=== PATIENT | female | born 1960 | race Caucasian/White ===

== ENCOUNTER → 2022-08-24 10:49 | Outpatient (BNVA) | payer OTHER, SELFPAY | PROVIDERS: PCP Physician Assistant; Referring Provider Physician Assistant; Visit Provider Student in an Organized Health Care Education/Training Program | DX: M06.9 Rheumatoid arthritis, unspecified (principal) ==

== ENCOUNTER → 2022-10-25 11:04 | Outpatient (BNVA) | payer OTHER, SELFPAY | PROVIDERS: PCP Physician Assistant; Visit Provider Student in an Organized Health Care Education/Training Program | DX: Z13.89 Encounter for screening for other disorder (principal) ==

== ENCOUNTER 2022-12-04 09:39 | Outpatient (REF) | payer OTHER, SELFPAY | END 2022-12-04 09:40 | disposition home or self-care (01) | LOC: HO.HOSX 09:39 | PROVIDERS: Visit Provider Orthopaedic Surgery | DX: Z13.89 Encounter for screening for other disorder (principal) ==

== ENCOUNTER 2022-12-05 15:12 | Outpatient (REF) | payer OTHER, SELFPAY ==
--- NOTE | ~2022-12-05 | XR_ITS ---
EXAMINATION: XR HAND, RIGHT CLINICAL INFORMATION: Pain COMPARISON: None available. TECHNIQUE: PA, lateral, and oblique views of the right hand. FINDINGS: There is a single screw seen across the first MCP joint. There appears to be bony ankylosis at the joint space. The trapezium may been removed. There is mild arthritis at the first PENITENTIARY joint with joint space narrowing, subchondral cyst and osteophyte formation. There is a triangular-shaped well-corticated bone density projecting over the distal radial ulnar joint suggestive of changes related to old trauma. There is question of widening of the distal radial ulnar joint and dorsal subluxation of the distal ulna with respect to the radius and carpal bones. Soft tissues are unremarkable. XR/XR hand RT min 3V IMPRESSION: Surgical arthrodesis of the first MCP joint. Question resection of the trapezium. Arthritis at the first PENITENTIARY joint. Question old trauma to the distal radial ulnar joint and dorsal subluxation of the distal ulna.
== END 2022-12-05 15:13 | disposition home or self-care (01) ==
LOC: HO.HOSX 15:12
PROVIDERS: Visit Provider Orthopaedic Surgery
DX: M79.641 Pain in right hand (principal); M25.331 Other instability, right wrist; M06.9 Rheumatoid arthritis, unspecified
CPT/HCPCS: 73130

== ENCOUNTER → 2023-01-10 11:04 | Outpatient (BNVA) | payer OTHER, SELFPAY | PROVIDERS: PCP Physician Assistant; Visit Provider Student in an Organized Health Care Education/Training Program ==

== ENCOUNTER 2023-02-11 11:15 | Outpatient (REF) | payer OTHER, SELFPAY ==
--- NOTE | ~2023-02-11 | CT_ITS ---
EXAMINATION: Chest CT high-resolution without IV contrast CLINICAL INFORMATION: Rheumatoid arthritis COMPARISON: None. TECHNIQUE: Axial images through the chest without IV contrast. Sagittal and coronal reconstructions on the technologist workstation were performed. This CT examination was performed using dose optimization techniques as appropriate, variously including the following: *Automated exposure control *Adjustment of mA and/or kV according to patient size (this includes techniques or standardized protocols for targeted exams where dose is matched to indication/reason for exam; i.e. extremities or head) *Use of iterative reconstruction technique DLP 2 4 9 mg/ cm. FINDINGS: No evidence of interstitial lung disease. 2 mm peripheral or subpleural left lower lobe nodule axial image 09/24/2009. This probably represents a subpleural lymph node. Minimal scarring or subsegmental atelectasis in the posterior medial right lower lobe adjacent to vertebral body bony osteophyte. Normal heart size. Trace pericardial fluid or thickening. Mild coronary artery calcification. Normal caliber thoracic aorta. No enlarged hilar or mediastinal lymph nodes. Normal thyroid gland. No pleural effusion or pleural thickening. No chest wall mass or enlarged axillary lymph nodes. There is atherosclerotic disease of the abdominal aorta. Images through the upper abdomen are otherwise unremarkable. Degenerative changes of the spine and shoulders. CT/CT chest wo con - High Res IMPRESSION: No evidence of interstitial lung disease. 2 mm left lower lobe peripheral or subpleural nodule probably representing a subpleural lymph node. According to the UPDATED 2017 Fleischner Society recommendations, the advised follow-up imaging for less than 6 mm solid nodule: Low risk, no chest CT follow-up and high risk, optional chest CT follow-up in one year. Atherosclerotic disease.
== END 2023-02-11 11:16 | disposition home or self-care (01) ==
LOC: HO.CT 11:15
PROVIDERS: PCP Physician Assistant; Visit Provider Student in an Organized Health Care Education/Training Program
DX: M06.9 Rheumatoid arthritis, unspecified (principal)
CPT/HCPCS: 71250

== ENCOUNTER 2023-04-18 10:13 | Outpatient (AMB) | payer MEDICARE, OTHER, SELFPAY ==
[2023-04-18 10:18] VITALS: BP 124/72; PULSE 68; TEMP 36.3; O2SAT 98; BMI 28.8
--- NOTE | 2023-04-18 10:18 | MHC.OFFVIS ---
Intake Vital Signs 04/18/23 10:18 Height 5 ft 4 in Weight 167 lb 8.821 oz BMI 28.8 BP 124/72 Blood Pressure Location Rt brachial Position Sitting Pulse 68 Pulse Source Pulse Oximeter Temp 97.3 F Temp Source Skin Pulse Oximetry (%) 98 Intake Visit Reasons: RA Intake Note: Pt seen today for RA follow up. Manufacturers Agent Required: No Accompanied by: Self / Same As Patient Allergies Seasonal Allergies Allergy (Unknown, Verified 04/18/23 10:21) Unknown Medication List - Last Reconciled 04/18/23 by Antonette Pope MD albuterol sulfate 90 mcg/actuation (ProAir HFA) 2 puffs inhalation Q6H PRN aspirin (Adult Low Dose Aspirin) 81 mg PO DAILY atorvastatin 40 mg PO BEDTIME bupropion HCl 150 mg PO BID famciclovir 1,500 mg PO BID fluticasone propionate 50 mcg/actuation (Allergy Relief (fluticasone)) 2 sprays intranasal DAILY folic acid 1 mg PO DAILY gabapentin 600 mg PO TID gabapentin 300 mg PO BEDTIME hydrochlorothiazide 25 mg PO DAILY metformin ER 500 mg PO BID methotrexate sodium 20 mg PO QWEEK pantoprazole 20 mg PO DAILY prednisolone acetate 1% 0 drps ophthalmic (eye) sarilumab (Kevzara) 200 mg (1.14 mL) subcut Q2W sertraline 50 mg PO DAILY HPI HPI Comments History of Present Illness Details 63-year-old female with seropositive rheumatoid arthritis returns for follow-up. Patient has been having right big toe pain for long time but it has been worse recently. This affects her gait switch causes pain in both hips especially the right hip. She has also been having bilateral hip pain worse on the right. She has intermittent pain in her right 2nd MCP. She has been getting triggering of her right middle finger worse with activity. This happens every day and however she tries to do certain activities with her hands. Initial history: This is a 62-year-old female with a past medical history of hypertension, diabetes mellitus, dyslipidemia, CVA, carotid artery stenosis, obstructive sleep apnea presents for RA management. Patient's previous lactation specialist left the practice. Patient was initially diagnosed by Dr. Salinas in 2006. She was on meloxicam, initially, Plaquenil was not very effective. She had been on methotrexate almost all through. Was on leflunomide but it was rapidly discontinued per patient, likely due to lack of efficacy, She was on Enbrel for 7-8 years and it stopped its efficacy. Humira was not effective. She was doing well on Xeljanz for 2-3 years then it it was switched to Kevzara in 2020 by . She remains on Kevzara every 2 weeks, methotrexate 8 tabs once weekly and folic acid, she is also on prednisone but she is not sure how much she is taking. For more than 1 month patient has been sick with a cold she has been having runny nose followed by chest congestion and cough. Her cough is now productive of greenish sputum. She denies any fevers. She denies worsening shortness of breath She self tested herself for COVID at home multiple times and it was negative. She received the flu vaccine this season. Patient continues to have diffuse joint pain she has difficulty flexing her right middle finger PIP. She has morning stiffness especially affecting her hips bilaterally. She takes ibuprofen 3-4 tablets 3 to 4 times a month for joint pain. [facility] Medical History Anxiety Back pain with history of spinal surgery Biceps tendinitis Carotid artery stenosis CVA (cerebral vascular accident) Diabetes Essential (primary) hypertension GERD (gastroesophageal reflux disease) Hyperlipidemia Impaired cognition Insomnia KAROLINA (obstructive sleep apnea) Rheumatoid arthritis Tobacco abuse Surgical History H/O cervical discectomy H/O heart artery stent H/O neck surgery H/O thumb surgery History of bladder surgery Hx of section Hx of colonoscopy Hx of knee surgery Family History Mother Thyroid disease Heart disease Arthritis Maternal Grandfather Stomach cancer Social History Household Members: Spouse and Children Alcohol intake: current Patient Tobacco Use Status: Current everyday Tobacco user Cigarettes Per Day: 4 Substance Use Type: Marijuana Current occupational status: previously employed and retired 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 Review of Systems [facility] Reports arthralgias Skin/Breast Reports system reviewed and no additional complaints, except as documented Physical Exam Vital Signs: Last Vital Signs Temp 97.3 F 04/18/23 10:18 Pulse 68 08/24/23 10:18 BP 124/72 04/18/23 10:18 Pulse Ox 98 04/18/23 10:18 BMI result Body Mass Index 28.8 Const General: cooperative, comfortable and no acute distress Nutritional Appearance: obese Orientation/consciousness: patient oriented x3 Limitations: no limitations HEENT Head: Yes normocephalic and Yes atraumatic Resp Effort & Inspection: normal respiratory effort and able to speak in complete sentences Neuro General: patient oriented x3 Extrem Other: Mild right wrist tenderness at the ulnar styloid, minimal swelling Positive right hand MCP squeeze test (pain and 2nd MCP) Right trochanteric bursa area tenderness. Negative Patrice's test Osteoarthritic changes of both hands with Heberden's and Sarahi's nodes Bilateral feet bunions. Worse on the right, right big toe bunion tender No MTP tenderness Bilateral CMC grind test positive with pain Few fibromyalgia tender points Office Procedures Joint Injection/Drain Joint Injection/Drain Primary Site: right trigger finger (Middle finger) Prep: site was prepped using sterile technique and ethochloride spray was applied Injected: 20 mg of, Kenalog and other (0.1 mL of 1% lidocaine) Procedure: The patient tolerated the procedure well Coding Details: The right palm was prepped with ChloraPrep and alcohol. Under a topical ethyl chloride spray the [3rd] flexor tendon sheath was injected with 20 mg of triamcinolone and 0.1 cc of 1% lidocaine. The patient tolerated the procedure without any acute adverse effects. Additional procedure code (CPT) needed (Trigger finger) Results Reviewed Results Reviewed: Labs 05/2022? HbA1c 6.2%? CRP normal? CMP unremarkable with normal AST/ALT/albumin/creatinine Sed rate normal CBC unremarkable with normal WBC, hemoglobin and platelets Labs 09/2022 showed normal BMP Assessment & Plan Assessment & Plan (1) Rheumatoid arthritis: Comment: ++RF+++CCP Diagnosed [address] Salinas. Hydroxychloroquine, leflunomide ineffective Methotrexate all through Enbrel for 7-8 years working well then lost efficacy, Humira ineffective Xeljanz effective for 2-3 years then switched to Kevzara 2020 (due to risk of CV events) Kevzara 2020 effective Code(s): M06.9 - Rheumatoid arthritis, unspecified Qualifiers: Rheumatoid arthritis location: multiple sites Rheumatoid factor presence: unspecified presence Qualified Code(s): M06.9 - Rheumatoid arthritis, unspecified Plan: 63-year-old female with seropositive RA presents for follow-up. on methotrexate 20 mg weekly and Kevzara 200 mg every other week. Today patient's RA is well controlled. She has a couple of tender joints. continue the methotrexate 20 mg once weekly and folic acid, continue Kevzara 200 mg every [address] High-resolution CT chest with order to evaluate for RA LD you which was negative. She has a 2 mm pulmonary nodule Labs before next visit in 3 months (2) Trigger middle finger of right hand: Code(s): M65.331 - Trigger finger, right middle finger Plan: Triggering of right middle finger. Patient is not interested in occupational therapy. With patient's consent. Right middle finger trigger injected in clinic today (3) Bunion of great toe of right foot: Code(s): M21.611 - Bunion of right foot Plan: Follow-up with Podiatry (4) Trochanteric bursitis of right hip: Code(s): M70.61 - Trochanteric bursitis, right hip Plan: I gave patient a printout of stretching exercise to do at home. If no improvement in 4-6 week so patient will call the office for an injection Plan I spent 35 minutes reviewing patient's chart, evaluating patient, ordering diagnostic workup, counseling patient and documenting in the chart Orders: Orders Comprehensive Met. Panel 3 Months M06.9 - Rheumatoid arthritis, unspecified Complete Blood Count Auto Diff 3 Months M06.9 - Rheumatoid arthritis, unspecified Erythrocyte Sedimentation Rate 3 Months M06.9 - Rheumatoid arthritis, unspecified C Reactive Protein 3 Months M06.9 - Rheumatoid arthritis, unspecified AMB Joint Injection/Aspiration Today M65.331 - Trigger finger, right middle finger Coding Level of Care Code Est Pt Level 4 (87991) Diagnoses Rheumatoid arthritis M06.9 Rheumatoid arthritis location: multiple sites Rheumatoid factor presence: unspecified presence Trigger middle finger of right hand M65.331 Bunion of great toe of right foot M21.611 Trochanteric bursitis of right hip M70.61
== END 2023-04-18 10:46 | disposition home or self-care (01) ==
PROVIDERS: PCP Physician Assistant; Visit Provider Student in an Organized Health Care Education/Training Program
DX: M06.9 Rheumatoid arthritis, unspecified (principal); M65.331 Trigger finger, right middle finger; M21.611 Bunion of right foot; M70.61 Trochanteric bursitis, right hip
CPT/HCPCS: 20550; 99214

== ENCOUNTER → 2023-04-18 10:13 | Outpatient (BNVA) | payer MEDICARE, OTHER, SELFPAY | PROVIDERS: Visit Provider Student in an Organized Health Care Education/Training Program | DX: M65.331 Trigger finger, right middle finger (principal); M06.9 Rheumatoid arthritis, unspecified; M21.611 Bunion of right foot; M70.61 Trochanteric bursitis, right hip | CPT/HCPCS: 20550; 99212; J3301 ==

== ENCOUNTER 2023-07-04 10:42 | Outpatient (AMB) | payer MEDICARE, OTHER, SELFPAY ==
[2023-07-04 10:45] VITALS: BP 128/72; PULSE 66; TEMP 36.6; O2SAT 97; BMI 30.4
--- NOTE | 2023-07-04 10:45 | MHC.OFFVIS ---
Intake Vital Signs 07/04/23 10:45 Height 5 ft 4 in Weight 177 lb 0.499 oz BMI 30.4 BP 128/72 Blood Pressure Location Rt brachial Position Sitting Pulse 66 Pulse Source Pulse Oximeter Temp 97.8 F Temp Source Skin Pulse Oximetry (%) 97 Intake Visit Reasons: RA Intake Note: Pt last seen 04/18/23, presents today for follow up and test results. Labs not done, orders were faxed to [facility] lab yesterday she will do them today. C/o shoulder pain, requesting injection. Pantograph Ii Engraver Required: No Accompanied by: Self / Same As Patient Allergies Seasonal Allergies Allergy (Unknown, Verified 07/04/23 10:47) Unknown Medication List - Last Reconciled 07/04/23 by Antonette Pope MD albuterol sulfate 90 mcg/actuation (ProAir HFA) 2 puffs inhalation Q6H PRN aspirin (Adult Low Dose Aspirin) 81 mg PO DAILY atorvastatin 40 mg PO BEDTIME bupropion HCl 150 mg PO BID famciclovir 1,500 mg PO BID fluticasone propionate 50 mcg/actuation (Allergy Relief (fluticasone)) 2 sprays intranasal DAILY folic acid 1 mg PO DAILY gabapentin 600 mg PO TID gabapentin 300 mg PO BEDTIME hydrochlorothiazide 25 mg PO DAILY Kevzara (sarilumab) 200 mg (1.14 mL) subcut Q2W NS metformin ER 500 mg PO BID methotrexate sodium 20 mg PO QWEEK pantoprazole 20 mg PO DAILY prednisolone acetate 1% 0 drps ophthalmic (eye) sertraline 50 mg PO DAILY HPI HPI Comments History of Present Illness Details 63-year-old female with seropositive rheumatoid arthritis returns for follow-up. Patient states that over the last couple of weeks she has been having bilateral shoulder pain and stiffness. She states that she would get shoulder injections by Pain Management in the past. The most recent injection was about a year ago. She is requesting bilateral shoulder injections today. States that she continues to have triggering of her right middle finger. She is also having triggering of her left index and left middle finger. Initial history: This is a 62-year-old female with a past medical history of hypertension, diabetes mellitus, dyslipidemia, CVA, carotid artery stenosis, obstructive sleep apnea presents for RA management. Patient's previous carbon rod inserter left the practice. Patient was initially diagnosed by Dr. Salinas in 2006. She was on meloxicam, initially, Plaquenil was not very effective. She had been on methotrexate almost all through. Was on leflunomide but it was rapidly discontinued per patient, likely due to lack of efficacy, She was on Enbrel for 7-8 years and it stopped its efficacy. Humira was not effective. She was doing well on Xeljanz for 2-3 years then it it was switched to Kevzara in 2020 by . She remains on Kevzara every 2 weeks, methotrexate 8 tabs once weekly and folic acid, she is also on prednisone but she is not sure how much she is taking. For more than 1 month patient has been sick with a cold she has been having runny nose followed by chest congestion and cough. Her cough is now productive of greenish sputum. She denies any fevers. She denies worsening shortness of breath She self tested herself for COVID at home multiple times and it was negative. She received the flu vaccine this season. Patient continues to have diffuse joint pain she has difficulty flexing her right middle finger PIP. She has morning stiffness especially affecting her hips bilaterally. She takes ibuprofen 3-4 tablets 3 to 4 times a month for joint pain. [facility] Medical History Back pain with history of spinal surgery Tobacco abuse KAROLINA (obstructive sleep apnea) Rheumatoid arthritis Essential (primary) hypertension Anxiety CVA (cerebral vascular accident) Hyperlipidemia Insomnia Impaired cognition Diabetes Biceps tendinitis Carotid artery stenosis GERD (gastroesophageal reflux disease) Surgical History H/O neck surgery H/O thumb surgery H/O heart artery stent H/O cervical discectomy Hx of colonoscopy Hx of knee surgery Hx of section History of bladder surgery Family History Mother Thyroid disease Heart disease Arthritis Maternal Grandfather Stomach cancer Social History Household Members: Spouse and Children Alcohol intake: current Patient Tobacco Use Status: Current everyday Tobacco user Cigarettes Per Day: 4 Substance Use Type: Marijuana Current occupational status: previously employed and retired 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 Review of Systems [facility] Reports arthralgias Skin/Breast Reports system reviewed and no additional complaints, except as documented Physical Exam Vital Signs: Last Vital Signs Temp 97.8 F 07/04/23 10:45 Pulse 66 07/04/23 10:45 BP 128/72 07/04/23 10:45 Pulse Ox 97 07/04/23 10:45 BMI result Body Mass Index 30.4 Const General: cooperative, comfortable and no acute distress Nutritional Appearance: obese Orientation/consciousness: patient oriented x3 Limitations: no limitations HEENT Head: Yes normocephalic and Yes atraumatic Resp Effort & Inspection: normal respiratory effort and able to speak in complete sentences Neuro General: patient oriented x3 Extrem Other: Minimal swelling at the right ulnar styloid without tenderness. Normal range of motion of right wrist Positive right hand MCP squeeze test (pain at 2nd MCP) Triggering of right middle finger Bilateral shoulder pain with full abduction Limited neck rotation bilaterally Negative Spurling's test Osteoarthritic changes of both hands with Heberden's and Sarahi's nodes Bilateral feet bunions. Worse on the right No MTP tenderness Bilateral CMC grind test positive with pain Few fibromyalgia tender points Office Procedures Joint Injection/Drain Joint Injection/Drain Primary Site: left shoulder Secondary Site: right shoulder Prep: site was prepped using sterile technique Injected: 40 mg of, Kenalog and other (2 mL of 1% lidocaine) Approach Used: posterolateral Procedure: The patient tolerated the procedure well Coding Details: With the patient's consent the left shoulder was prepped with ChloraPrep and alcohol. Under a topical ethyl chloride spray the left subacromial space was injected with 40 mg of triamcinolone and 2 cc of 1% lidocaine. The patient tolerated the procedure without any acute adverse effects. With the patient's consent the right shoulder was prepped with ChloraPrep and alcohol. Under a topical ethyl chloride spray the right subacromial space was injected with 40 mg of triamcinolone and 2 cc of 1% lidocaine. The patient tolerated the procedure without any acute adverse effects. - Large joint (X2) Procedure code (CPT) selection complete Results Reviewed Results Reviewed: Labs 05/2022? HbA1c 6.2%? CRP normal? CMP unremarkable with normal AST/ALT/albumin/creatinine Sed rate normal CBC unremarkable with normal WBC, hemoglobin and platelets Labs 09/2022 showed normal BMP Assessment & Plan Assessment & Plan (1) Rheumatoid arthritis: Comment: ++RF+++CCP Diagnosed [address] Salinas. Hydroxychloroquine, leflunomide ineffective Methotrexate all through Enbrel for 7-8 years working well then lost efficacy, Humira ineffective Xeljanz effective for 2-3 years then switched to Kevzara 2020 (due to risk of CV events) Kevzara 2020 effective Code(s): M06.9 - Rheumatoid arthritis, unspecified Qualifiers: Rheumatoid arthritis location: multiple sites Rheumatoid factor presence: unspecified presence Qualified Code(s): M06.9 - Rheumatoid arthritis, unspecified Plan: 63-year-old female with seropositive RA presents for follow-up. on methotrexate 20 mg weekly and Kevzara 200 mg every other week. RA is well controlled on current treatment. continue the methotrexate 20 mg once weekly and folic acid, continue Kevzara 200 mg every [address] High-resolution CT chest was ordered to evaluate for RA-ILD which was negative. She has a 2 mm pulmonary nodule Labs before next visit in 3 months (2) Trigger middle finger of right hand: Code(s): M65.331 - Trigger finger, right middle finger Plan: Triggering of right middle finger. Was injected last visit without improvement. Will refer patient to Hand surgery (3) Rotator cuff arthropathy of both shoulders: Code(s): M12.811 - Other specific arthropathies, not elsewhere classified, right shoulder; M12.812 - Other specific arthropathies, not elsewhere classified, left shoulder Plan: With patient's consent, both shoulders were injected with Kenalog today for subacromial bursitis.. Advised patient that if her shoulder pain does not improved, she should consider evaluation by Pain Management as some of her shoulder pain can be referred from her neck arthritis Plan I spent 35 minutes reviewing patient's chart, evaluating patient, ordering diagnostic workup, counseling patient and documenting in the chart Orders: Orders Comprehensive Met. Panel Today Z79.631 - senior care (current) use of antimetabolite agent Erythrocyte Sedimentation Rate Today Z79.631 - termite control service representative (current) use of antimetabolite agent Complete Blood Count Auto Diff 10/02/23 Z79.631 - termite control service representative (current) use of antimetabolite agent Complete Blood Count Auto Diff 12/31/23 Z79.631 - senior care (current) use of antimetabolite agent Complete Blood Count Auto Diff 03/30/24 Z79.631 - termite control service representative (current) use of antimetabolite agent Complete Blood Count Auto Diff 06/28/24 Z79.631 - termite control service representative (current) use of antimetabolite agent Complete Blood Count Auto Diff 09/26/24 Z79.631 - senior care (current) use of antimetabolite agent Complete Blood Count Auto Diff 03/25/25 Z79.631 - senior care (current) use of antimetabolite agent Complete Blood Count Auto Diff 06/23/25 Z79.631 - senior care (current) use of antimetabolite agent Complete Blood Count Auto Diff 12/20/25 Z79.631 - senior care (current) use of antimetabolite agent Complete Blood Count Auto Diff 03/20/26 Z79.631 - senior care (current) use of antimetabolite agent Comprehensive Met. Panel Today Z79.631 - termite control service representative (current) use of antimetabolite agent Comprehensive Met. Panel 10/02/23 Z79.631 - senior care (current) use of antimetabolite agent Comprehensive Met. Panel 06/23/25 Z79.631 - termite control service representative (current) use of antimetabolite agent C Reactive Protein Today Z79.631 - termite control service representative (current) use of antimetabolite agent C Reactive Protein 12/31/23 Z79.631 - termite control service representative (current) use of antimetabolite agent C Reactive Protein 06/28/24 Z79.631 - senior care (current) use of antimetabolite agent C Reactive Protein 09/26/24 Z79.631 - senior care (current) use of antimetabolite agent C Reactive Protein 09/21/25 Z79.631 - termite control service representative (current) use of antimetabolite agent C Reactive Protein 12/20/25 Z79.631 - senior care (current) use of antimetabolite agent Erythrocyte Sedimentation Rate Today Z79.631 - senior care (current) use of antimetabolite agent Erythrocyte Sedimentation Rate 12/31/23 Z79.631 - termite control service representative (current) use of antimetabolite agent Erythrocyte Sedimentation Rate 09/26/24 Z79.631 - termite control service representative (current) use of antimetabolite agent Erythrocyte Sedimentation Rate 12/25/24 Z79.631 - senior care (current) use of antimetabolite agent Erythrocyte Sedimentation Rate 06/23/25 Z79.631 - termite control service representative (current) use of antimetabolite agent Erythrocyte Sedimentation Rate 03/20/26 Z79.631 - termite control service representative (current) use of antimetabolite agent AMB Joint Injection/Aspiration Today M06.9 - Rheumatoid arthritis, unspecified Complete Blood Count Auto Diff Today Z79.631 - termite control service representative (current) use of antimetabolite agent C Reactive Protein Today Z79.631 - senior care (current) use of antimetabolite agent Complete Blood Count Auto Diff Today Z79.631 - termite control service representative (current) use of antimetabolite agent Complete Blood Count Auto Diff 12/25/24 Z79.631 - senior care (current) use of antimetabolite agent Complete Blood Count Auto Diff 09/21/25 Z79.631 - termite control service representative (current) use of antimetabolite agent Comprehensive Met. Panel 12/31/23 Z79.631 - senior care (current) use of antimetabolite agent Comprehensive Met. Panel 03/30/24 Z79.631 - termite control service representative (current) use of antimetabolite agent Comprehensive Met. Panel 06/28/24 Z79.631 - senior care (current) use of antimetabolite agent Comprehensive Met. Panel 09/26/24 Z79.631 - termite control service representative (current) use of antimetabolite agent Comprehensive Met. Panel 12/25/24 Z79.631 - termite control service representative (current) use of antimetabolite agent Comprehensive Met. Panel 03/25/25 Z79.631 - senior care (current) use of antimetabolite agent Comprehensive Met. Panel 09/21/25 Z79.631 - termite control service representative (current) use of antimetabolite agent Comprehensive Met. Panel 12/20/25 Z79.631 - termite control service representative (current) use of antimetabolite agent Comprehensive Met. Panel 03/20/26 Z79.631 - senior care (current) use of antimetabolite agent C Reactive Protein 10/02/23 Z79.631 - termite control service representative (current) use of antimetabolite agent C Reactive Protein 03/30/24 Z79.631 - termite control service representative (current) use of antimetabolite agent C Reactive Protein 12/25/24 Z79.631 - termite control service representative (current) use of antimetabolite agent C Reactive Protein 03/25/25 Z79.631 - senior care (current) use of antimetabolite agent C Reactive Protein 06/23/25 Z79.631 - senior care (current) use of antimetabolite agent C Reactive Protein 03/20/26 Z79.631 - senior care (current) use of antimetabolite agent Erythrocyte Sedimentation Rate 10/02/23 Z79.631 - termite control service representative (current) use of antimetabolite agent Erythrocyte Sedimentation Rate 03/30/24 Z79.631 - senior care (current) use of antimetabolite agent Erythrocyte Sedimentation Rate 06/28/24 Z79.631 - termite control service representative (current) use of antimetabolite agent Erythrocyte Sedimentation Rate 03/25/25 Z79.631 - senior care (current) use of antimetabolite agent Erythrocyte Sedimentation Rate 09/21/25 Z79.631 - termite control service representative (current) use of antimetabolite agent Erythrocyte Sedimentation Rate 12/20/25 Z79.631 - termite control service representative (current) use of antimetabolite agent Referrals Hand Surgery Referral M65.331 - Trigger finger, right middle finger Coding Level of Care Code Est Pt Level 4 (90709) Diagnoses Rheumatoid arthritis involving multiple sites, unspecified whether rheumatoid factor present M06.9 Rheumatoid arthritis location: multiple sites Rheumatoid factor presence: unspecified presence Trigger middle finger of right hand M65.331 Rotator cuff arthropathy of both shoulders M12.811; M12.812 CPT Codes Coding - 84839 Large joint: 07867 - Large joint ([id number])
== END 2023-07-04 11:26 | disposition home or self-care (01) ==
PROVIDERS: PCP Physician Assistant; Visit Provider Student in an Organized Health Care Education/Training Program
DX: M06.9 Rheumatoid arthritis, unspecified (principal); M65.331 Trigger finger, right middle finger; M12.811 Other specific arthropathies, not elsewhere classified, right shoulder; M12.812 Other specific arthropathies, not elsewhere classified, left shoulder
CPT/HCPCS: 20610; 99214

== ENCOUNTER → 2023-07-04 10:42 | Outpatient (BNVA) | payer MEDICARE, OTHER, SELFPAY | PROVIDERS: PCP Physician Assistant; Visit Provider Student in an Organized Health Care Education/Training Program | DX: M06.9 Rheumatoid arthritis, unspecified (principal); M65.331 Trigger finger, right middle finger; M12.811 Other specific arthropathies, not elsewhere classified, right shoulder; M12.812 Other specific arthropathies, not elsewhere classified, left shoulder | CPT/HCPCS: 20610; 99212 ==

== ENCOUNTER 2023-08-27 13:36 | Outpatient (AMB) | payer MEDICARE, OTHER, SELFPAY ==
--- NOTE | 2023-08-27 13:55 | A.OFFVIS_ITS ---
Intake Vital Signs 08/27/23 13:56 Height 5 ft 4 in Weight 177 lb BMI 30.4 Intake Visit Reasons: New prob.- Trigger finger, right middle finger Intake Note: Rosa Maria 63 yr old female who is right hand dominant, presents today for a new problem visit for right middle trigger finger. States her finger locks especially in the mornings and with heavy lifting. Patient reports this started about 2 years ago. Patient would like to discuss injection vs surgical intervention. Allergies Seasonal Allergies Allergy (Unknown, Verified 08/27/23 13:55) Unknown HPI New prob.- Trigger finger, right middle finger HPI Details Ioana is a 63 year old right hand dominant Diabetic woman who presents with complaints of right middle finger pain, with painful snapping bringing her right middle finger from full extension into flexion. This is a new complaint. She denies any prior treatment. She has RA and follows with Rheumatology. She has been seen in the past for a right DRUJ instability. She has no complaint about pain in her wrist today. She does say that the generalized pain in all of her joints has worsened in he last few weeks, but she has not been able to take her Methotrexate due to a prescription issue. She is working on resuming her medication soon. Of note, she does appear to be on Kevzara (Sarilumab), a biologic medication for rheumatoid arthritis. [facility] Medical History Back pain with history of spinal surgery Tobacco abuse KAROLINA (obstructive sleep apnea) Rheumatoid arthritis Essential (primary) hypertension Anxiety CVA (cerebral vascular accident) Hyperlipidemia Insomnia Impaired cognition Diabetes Biceps tendinitis Carotid artery stenosis GERD (gastroesophageal reflux disease) Surgical History H/O neck surgery H/O thumb surgery H/O heart artery stent H/O cervical discectomy Hx of colonoscopy Hx of knee surgery Hx of section History of bladder surgery Family History Mother Thyroid disease Heart disease Arthritis Maternal Grandfather Stomach cancer Social History Household Members: Spouse and Children Alcohol intake: current Patient Tobacco Use Status: Current everyday Tobacco user Cigarettes Per Day: 4 Substance Use Type: Marijuana Current occupational status: previously employed and retired 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 Review of Systems Const All systems reviewed & are unremarkable except as noted in HPI and below Physical Exam Vital Signs: BMI result Body Mass Index 30.4 Const General: cooperative, healthy appearing and no acute distress Orientation/consciousness: patient oriented x3 HEENT Head: Yes normocephalic and Yes atraumatic Eyes EOM: EOMs intact bilaterally Resp Effort & Inspection: normal respiratory effort and able to speak in complete sentences Cardio Jugular venous distension: no JVD Skin General skin exam: turgor normal Rashes: no rashes Neuro General: patient oriented x3 Extrem Other: Evaluation of Right Upper Extremity: The patient is alert, oriented, and in no acute distress Neuro: Median, Ulnar, Radial nerves motor and sensory intact and sensation is normal to the tips of all digits Vascular: Cap refill brisk ROM: She can make a fist and extend all her digits. When her fingers were brought into full extension, she had ~10-15 degrees of hyperextension at the middle finger PIP joint. When trying to make a fist her middle finger would remain stuck in hyperextension until snapping closed, due to laxity at the volar plate of the PIP joint No locking or catching when proceeding from full flexion into extension, thus no trigger finger problems Skin: No lacerations or abrasions. General: No Ecchymosis. No Erythema or evidence of infection. 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 Salinas. 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 Right middle finger mild PIP joint hyperextension/Wilmot-neck deformity I educated her about this condition I discussed operative and non-operative treatment options including silver-ring splints, using split ulnar slip FDS tendon to prevent hyper extension. I discussed activity modification, she should avoid intentional hyperextension of her middle finger PIP joint, or frequent demonstration of the snapping activity. I do believe the best treatment is the silver ring splint. I showed her the silver-ring splint website and products and she will contact them in order to make a purchase of a mild swan-neck ring splint. They appear to cost 105 dollars, and I explained that they may not be covered by insurance. If she has difficulty with the sizing or use we may consider sending her to OT for help with this issue. She is happy with the current plan. She can follow up prn. Please note that greater than 30 minutes was spent with the patient taking history, examining the patient to determine a diagnosis and formulating a treatment plan. Most of the time was spent educating the patient about this condition and about the treatment options. Scribed for Gricel Hoang MD by Marcelino Rock, medical artist, on 08/27/23 at 2:50 PM, EST. 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
[2023-08-27 13:56] VITALS: BMI 30.4
== END 2023-08-27 14:44 | disposition home or self-care (01) ==
PROVIDERS: PCP Physician Assistant; Visit Provider Orthopaedic Surgery
DX: M19.041 Primary osteoarthritis, right hand (principal); M20.031 Swan-neck deformity of right finger(s); Z79.631 Long term (current) use of antimetabolite agent; M06.9 Rheumatoid arthritis, unspecified; E11.9 Type 2 diabetes mellitus without complications
CPT/HCPCS: 99214

== ENCOUNTER → 2023-08-27 13:36 | Outpatient (BNVA) | payer MEDICARE, OTHER, SELFPAY | PROVIDERS: PCP Physician Assistant; Visit Provider Orthopaedic Surgery | DX: M79.7 Fibromyalgia (principal); M20.031 Swan-neck deformity of right finger(s); M06.9 Rheumatoid arthritis, unspecified; E11.9 Type 2 diabetes mellitus without complications; Z79.631 Long term (current) use of antimetabolite agent | CPT/HCPCS: 99212 ==

== ENCOUNTER 2023-10-22 11:12 | Outpatient (AMB) | payer MEDICARE, OTHER, SELFPAY ==
[2023-10-22 11:21] VITALS: BP 128/74; PULSE 75; TEMP 36; O2SAT 96; BMI 29.8
--- NOTE | 2023-10-22 11:21 | A.OFFVIS_ITS ---
Intake Vital Signs 10/22/23 11:21 Height 5 ft 4 in Weight 173 lb 8.061 oz BMI 29.8 BP 128/74 Blood Pressure Location Rt brachial Position Sitting Pulse 75 Pulse Source Pulse Oximeter Temp 96.8 F Temp Source Skin Pulse Oximetry (%) 96 Oxygen Delivery Method Room Air Intake Visit Reasons: RA Intake Note: Patient last seen 07/04/23 presents today for follow up and test results. States she has lots of trouble with shoulders and neck on left side. Reports finger locking, bl hands. 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 Required: No Accompanied by: Self / Same As Patient Allergies Seasonal Allergies Allergy (Unknown, Verified 10/22/23 11:28) Unknown Medication List - Last Reconciled 10/22/23 by Antonette Pope MD albuterol sulfate 90 mcg/actuation (ProAir HFA) 2 puffs inhalation Q6H PRN aspirin (Adult Low Dose Aspirin) 81 mg PO DAILY atorvastatin 40 mg PO BEDTIME bupropion HCl 150 mg PO BID famciclovir 1,500 mg PO BID fluticasone propionate 50 mcg/actuation (Allergy Relief (fluticasone)) 2 sprays intranasal DAILY folic acid 1 mg PO DAILY gabapentin 600 mg PO TID gabapentin 300 mg PO BEDTIME hydrochlorothiazide 25 mg PO DAILY Kevzara (sarilumab) 200 mg (1.14 mL) subcut Q2W NS metformin ER 500 mg PO BID methotrexate sodium 20 mg (8 x 2.5 mg) PO QWEEK pantoprazole 20 mg PO DAILY sertraline 50 mg PO DAILY HPI HPI Comments History of Present Illness Details 63-year-old female with seropositive rhe umatoid arthritis returns for follow-up. She is on methotrexate 20 mg weekly, Kevzara every other week and folic acid. Patient states that she is doing about the same overall. She is questioning the effectiveness of Kevzara. She has right shoulder pain. Worse with activity. She also feels some clicking of her neck. She states that she continues to have right lower back pain radiating towards her right lower extremity since her back surgery about 5 years ago. She was evaluated by Dr. 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 Hoang recommended getting fitted rings patient has not gone yet Initial history: This is a 62-year-old female with a past medical history of hypertension, diabetes mellitus, dyslipidemia, CVA, carotid artery stenosis, obstructive sleep apnea presents for RA management. Patient's previous community education specialist left the practice. Patient was initially diagnosed by Dr. Salinas in 2006. She was on meloxicam, initially, Plaquenil was not very effective. S he had been on methotrexate almost all through. Was on leflunomide but it was rapidly discontinued per patient, likely due to lack of efficacy, She was on Enbrel for 7-8 years and it stopped its efficacy. Humira was not effective. She was doing well on Xeljanz for 2-3 years then it it was switched to Kevzara in 2020 by . She remains on Kevzara every 2 weeks, methotrexate 8 tabs once weekly and folic acid, she is also on prednisone but she is not sure how much she is taking. For more than 1 month patient has been sick with a cold she has been having runny nose followed by chest congestion and cough. Her cough is now productive of greenish sputum. She denies any fevers. She denies worsening shortness of breath She self tested herself for COVID at home multiple times and it was negative. She received the flu vaccine this season. Patient continues to have diffuse joint pain she has difficulty flexing her right middle finger PIP. She has morning stiffness especially affecting her hips bilaterally. She takes ibuprofen 3-4 tablets 3 to 4 times a month for joint pain. [facility] Medical History (Updated 10/22/23 @ 12:44 by Antonette Pope MD) Back pain with history of spinal surgery Tobacco abuse KAROLINA (obstructive sleep apnea) Rheumatoid arthritis Essential (primary) hypertension Anxiety CVA (cerebral vascular accident) Hyperlipidemia Insomnia Impaired cognition Diabetes Biceps tendinitis Carotid artery stenosis GERD (gastroesophageal reflux disease) Surgical History H/O neck surgery H/O thumb surgery H/O heart artery stent H/O cervical discectomy Hx of colonoscopy Hx of knee surgery Hx of section History of bladder surgery Family History Mother Thyroid disease Heart disease Arthritis Maternal Grandfather Stomach cancer Social History Household Members: Spouse and Children Alcohol intake: current Patient Tobacco Use Status: Current everyday Tobacco user Cigarettes Per Day: 4 Substance Use Type: Marijuana Current occupational status: previously employed and retired 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 Review of Systems ENT Reports neck pain Musc Reports back pain, Reports arthralgias, Reports neck pain and Reports radiating pain into limb Skin/Breast Reports system reviewed and no additional complaints, except as documented Physical Exam Vital Signs: Last Vital Signs Temp 96.8 F 10/22/23 11:21 Pulse 75 10/22/23 11:21 BP 128/74 10/22/23 11:21 Pulse Ox 96 10/22/23 11:21 Oxygen Delivery Method Room Air 10/22/23 11:21 BMI result Body Mass Index 29.8 Const General: cooperative, comfortable and no acute distress Nutritional Appearance: obese Orientation/consciousness: patient oriented x3 Limitations: no limitations HEENT Head: Yes normocephalic and Yes atraumatic Resp Effort & Inspection: normal respiratory effort and able to speak in complete sentences Neuro General: patient oriented x3 Extrem Other: Mild bilateral wrist tenderness Few tender MCPs and PIPs bilaterally mild left 3rd PIP swelling and tenderness [place]-neck deformity of right middle finger and left ring finger Right shoulder pain with full abduction Negative rotator cuff provocative maneuvers bilaterally Limited neck rotation bilaterally Negative Spurling's test Osteoarthritic changes of both hands with Heberden's and Sarahi's nodes Bilateral feet bunions. Worse on the right No MTP tenderness Few fibromyalgia tender points Office Procedures Joint Injection/Drain Joint Injection/Drain Primary Site: right shoulder Prep: site was prepped using sterile technique and ethochloride spray was applied Injected: 40 mg of, Kenalog and other (2 mL of 1% lidocaine) Approach Used: posterolateral Procedure: The patient tolerated the procedure well Coding Details: With the patient's consent the right shoulder was prepped with ChloraPrep and alcohol. Under a topical ethyl chloride spray the left subacromial space was injected with 40 mg of triamcinolone and 2 cc of 1% lidocaine. The patient tolerated the procedure without any acute adverse effects. - Large joint Procedure code (CPT) selection complete Results Reviewed Results Reviewed: Labs 05/2022? HbA1c 6.2%? CRP normal? CMP unremarkable with normal AST/ALT/albumin/creatinine Sed rate normal CBC unremarkable with normal WBC, hemoglobin and platelets Labs 09/2022 showed normal BMP Assessment & Plan Assessment & Plan (1) Rheumatoid arthritis: Comment: ++RF+++CCP Diagnosed [address] Salinas. Hydroxychloroquine, leflunomide ineffective Methotrexate all through Enbrel for 7-8 years working well then lost efficacy, Humira ineffective Xeljanz effective for 2-3 years then switched to Kevzara 2020 (due to risk of CV events) Kevzara 2020 effective Code(s): M06.9 - Rheumatoid arthritis, unspecified Qualifiers: Rheumatoid arthritis location: multiple sites Rheumatoid factor presence: unspecified presence Qualified Code(s): M06.9 - Rheumatoid arthritis, unspecified Plan: 63-year-old female with seropositive RA presents for follow-up. on methotrexate 20 mg weekly and Kevzara 200 mg every other week. Patient is doing fairly well on current med regimen, continues to have few tender joints which are likely due to degenerative arthritis rather than active RA. continue the methotrexate 20 mg once weekly and folic acid, continue Kevzara 200 mg every 2 weeks[address] High-resolution CT chest was ordered to evaluate for RA-ILD which was negative. 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 Ever shoulder pain persists, we can consider doing a right shoulder MRI (4) Back pain with history of spinal surgery: Code(s): M54.9 - Dorsalgia, unspecified; Z98.890 - Other specified postprocedural states Plan: Advised patient to consult with pain management or a spine surgeon (5) [place]-neck deformity of finger of right hand: Code(s): M20.031 - [place]-neck deformity of right finger(s) Plan: Of right middle finger and left ring finger. Patient was evaluated by hand surgeon and advised to get fitted for rings. Patient did not go yet. 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
== END 2023-10-22 12:18 | disposition home or self-care (01) ==
PROVIDERS: PCP Physician Assistant; Visit Provider Student in an Organized Health Care Education/Training Program
DX: M06.09 Rheumatoid arthritis without rheumatoid factor, multiple sites (principal); Z79.631 Long term (current) use of antimetabolite agent; M19.011 Primary osteoarthritis, right shoulder; M54.9 Dorsalgia, unspecified; M20.031 Swan-neck deformity of right finger(s)
CPT/HCPCS: 20610; 99214

== ENCOUNTER → 2023-10-22 11:12 | Outpatient (BNVA) | payer MEDICARE, OTHER, SELFPAY | PROVIDERS: PCP Physician Assistant; Visit Provider Student in an Organized Health Care Education/Training Program | DX: M06.9 Rheumatoid arthritis, unspecified (principal); M19.011 Primary osteoarthritis, right shoulder; M20.031 Swan-neck deformity of right finger(s); M54.9 Dorsalgia, unspecified; Z79.631 Long term (current) use of antimetabolite agent; Z98.890 Other specified postprocedural states | CPT/HCPCS: 20610; 99212 ==

== ENCOUNTER 2024-02-13 13:18 | Outpatient (AMB) | payer MEDICARE, OTHER, SELFPAY ==
[2024-02-13 13:21] VITALS: BP 140/80; PULSE 76; O2SAT 96; BMI 29.5
--- NOTE | 2024-02-13 13:21 | MHC.OFFVIS ---
Vital Signs 02/13/24 13:21 Height 5 ft 4 in Weight 171 lb 15.369 oz BMI 29.5 BP 140/80 H Blood Pressure Location Rt brachial Position Sitting Pulse 76 Pulse Source Pulse Oximeter Pulse Oximetry (%) 96 Oxygen Delivery Method Room Air Intake Visit Reasons: RA/lm Allergies Seasonal Allergies Allergy (Unknown, Verified 02/13/24 13:24) Unknown Medication List - Last Reconciled 02/13/24 by Antonette Pope MD albuterol sulfate 90 mcg/actuation (ProAir HFA) 2 puffs inhalation Q6H PRN amlodipine 5 mg PO DAILY aspirin (Adult Low Dose Aspirin) 81 mg PO DAILY atorvastatin 40 mg PO BEDTIME bupropion HCl SR 150 mg PO BID famciclovir 1,500 mg PO BID fluticasone propionate 50 mcg/actuation (Allergy Relief (fluticasone)) 2 sprays intranasal DAILY folic acid 1 mg PO DAILY gabapentin 600 mg PO TID gabapentin 300 mg PO BEDTIME hydrochlorothiazide 25 mg PO DAILY Kevzara (sarilumab) 200 mg (1.14 mL) subcut Q2W NS lisinopril 10 mg PO DAILY metformin ER 500 mg PO BID methotrexate sodium 20 mg (8 x 2.5 mg) PO QWEEK pantoprazole 20 mg PO DAILY sertraline 50 mg PO DAILY HPI Comments Details: 63-year-old female with seropositive rheumatoid arthritis returns for follow-up. She is on methotrexate 20 mg weekly, Kevzara every other week and folic acid. Patient states that she is doing reasonably well overall. She continues to have her regular aches and pains but she thinks that her rheumatoid arthritis is well controlled. She has not had any swollen joints. Recently she has been having some numbness of her right shoulder. She had similar symptoms affecting her left shoulder when her neck was operated on a few years ago. She does not want to get another surgery at this point. She has not had any serious infections. Tolerating medications well. She got a jury summons and wants to be excused. Initial history: This is a 62-year-old female with a past medical history of hypertension, diabetes mellitus, dyslipidemia, CVA, carotid artery stenosis, obstructive sleep apnea presents for RA management. Patient's previous perioperative educator left the practice. Patient was initially diagnosed by Dr. Salinas in 2006. She was on meloxicam, initially, Plaquenil was not very effective. She had been on methotrexate almost all through. Was on leflunomide but it was rapidly discontinued per patient, likely due to lack of efficacy, She was on Enbrel for 7-8 years and it stopped its efficacy. Humira was not effective. She was doing well on Xeljanz for 2-3 years then it it was switched to Kevzara in 2020 by . She remains on Kevzara every 2 weeks, methotrexate 8 tabs once weekly and folic acid, she is also on prednisone but she is not sure how much she is taking. For more than 1 month patient has been sick with a cold she has been having runny nose followed by chest congestion and cough. Her cough is now productive of greenish sputum. She denies any fevers. She denies worsening shortness of breath She self tested herself for COVID at home multiple times and it was negative. She received the flu vaccine this season. Patient continues to have diffuse joint pain she has difficulty flexing her right middle finger PIP. She has morning stiffness especially affecting her hips bilaterally. She takes ibuprofen 3-4 tablets 3 to 4 times a month for joint pain. [facility] Medical History Back pain with history of spinal surgery Tobacco abuse KAROLINA (obstructive sleep apnea) Rheumatoid arthritis Essential (primary) hypertension Anxiety CVA (cerebral vascular accident) Hyperlipidemia Insomnia Impaired cognition Diabetes Biceps tendinitis Carotid artery stenosis GERD (gastroesophageal reflux disease) Surgical History H/O neck surgery H/O thumb surgery H/O heart artery stent H/O cervical discectomy Hx of colonoscopy Hx of knee surgery Hx of section History of bladder surgery Family History Mother Thyroid disease Heart disease Arthritis Maternal Grandfather Stomach cancer Social History Household Members: Spouse and Children Alcohol intake: current Patient Tobacco Use Status: Current everyday Tobacco user Cigarettes Per Day: 4 Substance Use Type: Marijuana Current occupational status: previously employed and retired 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 Review of Systems ENT Reports neck pain Musc Reports back pain, Reports arthralgias, Reports neck pain and Reports numbness Skin/Breast Reports system reviewed and no additional complaints, except as documented Neuro Reports numbness Physical Exam Vital Signs: Last Vital Signs Pulse 76 02/13/24 13:21 BP 140/80 H 02/13/24 13:21 Pulse Ox 96 02/13/24 13:21 Oxygen Delivery Method Room Air 02/13/24 13:21 BMI result Body Mass Index 29.5 Const General: cooperative, comfortable and no acute distress Nutritional Appearance: obese Orientation/consciousness: patient oriented x3 Limitations: no limitations HEENT Head: Yes normocephalic and Yes atraumatic Resp Effort & Inspection: normal respiratory effort and able to speak in complete sentences Cardio Rate: regular rate Rhythm: regular rhythm Skin General skin exam: no rashes or lesions noted Neuro General: patient oriented x3 Extrem Other: No active synovitis both hands and wrists today . No swollen or tender joints Normal range of motion of elbows without pain Likely rheumatoid nodule just distal to the left elbow joint on the extensor surface [place]-neck deformity of right middle finger and left ring finger Normal range of motion of both shoulders without pain Limited neck rotation bilaterally Negative Spurling's test Osteoarthritic changes of both hands with Heberden's and Sarahi's nodes Bilateral feet bunions. Worse on the right No MTP tenderness Few fibromyalgia tender points Results Reviewed Results Reviewed: Labs 05/2022? HbA1c 6.2%? CRP normal? CMP unremarkable with normal AST/ALT/albumin/creatinine Sed rate normal CBC unremarkable with normal WBC, hemoglobin and platelets Labs 09/2022 showed normal BMP Assessment & Plan Assessment & Plan (1) Rheumatoid arthritis: Comment: ++RF+++CCP Diagnosed [address] Salinas. Hydroxychloroquine, leflunomide ineffective Methotrexate all through Enbrel for 7-8 years working well then lost efficacy, Humira ineffective Xeljanz effective for 2-3 years then switched to Kevzara 2020 (due to risk of CV events) Kevzara 2020 effective Code(s): M06.9 - Rheumatoid arthritis, unspecified Category: Medical Qualifiers: Rheumatoid arthritis location: multiple sites Rheumatoid factor presence: unspecified presence Qualified Code(s): M06.9 - Rheumatoid arthritis, unspecified Plan: 63-year-old female with seropositive RA presents for follow-up. on methotrexate 20 mg weekly and Kevzara 200 mg every other week. Patient is quite well on current med regimen, there is no active synovitis. Inflammatory markers normal continue the methotrexate 20 mg once weekly and folic acid, continue Kevzara 200 mg every 2 weeks[address] High-resolution CT chest was ordered to evaluate for RA-ILD which was negative. 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 Now she is having similar symptoms affecting the right shoulder. Advised patient to follow-up with her spine surgeon. Plan I spent 45 minutes reviewing patient's chart, evaluating patient, ordering diagnostic workup, counseling patient, writing a letter to the district court excusing her from jury duty documenting in the chart Coding Level of Care Code Est Pt Level 5 (01625) Complex EM visit Add On G2211 Diagnoses Rheumatoid arthritis involving multiple sites, unspecified whether rheumatoid factor present M06.9 Rheumatoid arthritis location: multiple sites Rheumatoid factor presence: unspecified presence USP methotrexate user Z79.631 Numbness and tingling of right arm R20.0; R20.2
== END 2024-02-13 13:47 | disposition home or self-care (01) ==
PROVIDERS: PCP Physician Assistant; Visit Provider Student in an Organized Health Care Education/Training Program
DX: M06.9 Rheumatoid arthritis, unspecified (principal); Z79.631 Long term (current) use of antimetabolite agent; R20.0 Anesthesia of skin; R20.2 Paresthesia of skin
CPT/HCPCS: 99215; G2211

== ENCOUNTER → 2024-02-13 13:18 | Outpatient (BNVA) | payer MEDICARE, OTHER, SELFPAY | PROVIDERS: PCP Physician Assistant; Visit Provider Student in an Organized Health Care Education/Training Program | DX: M06.9 Rheumatoid arthritis, unspecified (principal); R20.0 Anesthesia of skin; R20.2 Paresthesia of skin; Z79.631 Long term (current) use of antimetabolite agent | CPT/HCPCS: 99212 ==

== ENCOUNTER 2024-06-16 14:39 | Outpatient (AMB) | payer MEDICARE, OTHER, SELFPAY ==
--- NOTE | 2024-06-16 14:42 | MHC.OFFVIS ---
Vital Signs 06/16/24 14:48 Height 5 ft 4 in Weight 165 lb 5.547 oz BMI 28.4 BP 140/80 H Blood Pressure Location Rt brachial Position Sitting Pulse 80 Pulse Source Pulse Oximeter Pulse Oximetry (%) 96 Oxygen Delivery Method Room Air Intake Visit Reasons: RA Intake Note: Patient presents for RA. Allergies Seasonal Allergies Allergy (Unknown, Verified 06/16/24 14:46) Unknown Medication List - Last Reconciled 06/16/24 by Antonette Pope MD albuterol sulfate 90 mcg/actuation (ProAir HFA) 2 puffs inhalation Q6H PRN amlodipine 5 mg PO DAILY aspirin (Adult Low Dose Aspirin) 81 mg PO DAILY atorvastatin 40 mg PO BEDTIME bupropion HCl SR 150 mg PO BID famciclovir 1,500 mg PO BID fluticasone propionate 50 mcg/actuation (Allergy Relief (fluticasone)) 2 sprays intranasal DAILY folic acid 1 mg PO DAILY gabapentin 600 mg PO TID gabapentin 300 mg PO BEDTIME Kevzara (sarilumab) 200 mg (1.14 mL) subcut Q2W NS lisinopril 10 mg PO DAILY metformin ER 500 mg PO BID methotrexate sodium 20 mg (8 x 2.5 mg) PO QWEEK pantoprazole 20 mg PO DAILY sertraline 50 mg PO DAILY HPI Comments Details: 64-year-old female with seropositive rheumatoid arthritis returns for follow-up. She is on methotrexate 20 mg weekly, Kevzara every other week and folic acid. She states that she has been doing well recently with diffuse pains especially of her left lower back that intermittently radiates towards her left lower extremit. She states that she used to get injections in her spine and hips by Pain Management in the past, injections every 3 months. Last seen by Pain Management about 2 years ago. She also states that she has difficulty making a fist and things fall out of her hands sometimes. She sleeps with a CPAP machine. She smokes marijuana nightly to help her go to sleep. Initial history: This is a 62-year-old female with a past medical history of hypertension, diabetes mellitus, dyslipidemia, CVA, carotid artery stenosis, obstructive sleep apnea presents for RA management. Patient's previous claim analyst left the practice. Patient was initially diagnosed by Dr. Salinas in 2006. She was on meloxicam, initially, Plaquenil was not very effective. She had been on methotrexate almost all through. Was on leflunomide but it was rapidly discontinued per patient, likely due to lack of efficacy, She was on Enbrel for 7-8 years and it stopped its efficacy. Humira was not effective. She was doing well on Xeljanz for 2-3 years then it it was switched to Kevzara in 2020 by . She remains on Kevzara every 2 weeks, methotrexate 8 tabs once weekly and folic acid, she is also on prednisone but she is not sure how much she is taking. For more than 1 month patient has been sick with a cold she has been having runny nose followed by chest congestion and cough. Her cough is now productive of greenish sputum. She denies any fevers. She denies worsening shortness of breath She self tested herself for COVID at home multiple times and it was negative. She received the flu vaccine this season. Patient continues to have diffuse joint pain she has difficulty flexing her right middle finger PIP. She has morning stiffness especially affecting her hips bilaterally. She takes ibuprofen 3-4 tablets 3 to 4 times a month for joint pain. [facility] Medical History Back pain with history of spinal surgery Tobacco abuse [place] (obstructive sleep apnea) Rheumatoid arthritis Essential (primary) hypertension Anxiety CVA (cerebral vascular accident) Hyperlipidemia Insomnia Impaired cognition Diabetes Biceps tendinitis Carotid artery stenosis GERD (gastroesophageal reflux disease) Surgical History H/O neck surgery H/O thumb surgery H/O heart artery stent H/O cervical discectomy Hx of colonoscopy Hx of knee surgery Hx of section History of bladder surgery Family History Mother Thyroid disease Heart disease Arthritis Maternal Grandfather Stomach cancer Social History Household Members: Spouse and Children Alcohol intake: current Patient Tobacco Use Status: Current everyday Tobacco user Cigarettes Per Day: 4 Substance Use Type: Marijuana Current occupational status: previously employed and retired 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 Review of Systems [facility] Reports back pain, Reports arthralgias and Reports numbness Skin/Breast Reports system reviewed and no additional complaints, except as documented Neuro Reports numbness Physical Exam Vital Signs: Last Vital Signs Pulse 80 06/16/24 14:48 BP 140/80 H 06/16/24 14:48 Pulse Ox 96 06/16/24 14:48 Oxygen Delivery Method Room Air 06/16/24 14:48 BMI result Body Mass Index 28.4 Const General: cooperative, comfortable and no acute distress Nutritional Appearance: obese Orientation/consciousness: patient oriented x3 Limitations: no limitations HEENT Head: Yes normocephalic and Yes atraumatic Resp Effort & Inspection: normal respiratory effort and able to speak in complete sentences Cardio Rate: regular rate Rhythm: regular rhythm Skin General skin exam: no rashes or lesions noted Neuro General: patient oriented x3 Extrem Other: Mildly swollen right 5th MCP Left 5th MCP swelling Few tender PIPs and MCPs both hands [place]-neck deformity of right middle finger and left ring finger Osteoarthritic changes of both hands with Heberden's and Sarahi's nodes Normal range of motion of elbows without pain Normal range of motion of both shoulders without pain Positive straight leg raise test on the left Bilateral feet bunions. Worse on the right No MTP tenderness Few fibromyalgia tender points Assessment & Plan Assessment & Plan (1) Rheumatoid arthritis: Comment: ++RF+++CCP Diagnosed [address] Salinas. Hydroxychloroquine, leflunomide ineffective Methotrexate all through Enbrel for 7-8 years working well then lost efficacy, Humira ineffective Xeljanz effective for 2-3 years then switched to Kevzara 2020 (due to risk of CV events) Kevzara 2020 effective Code(s): M06.9 - Rheumatoid arthritis, unspecified Category: Medical Qualifiers: Rheumatoid arthritis location: multiple sites Rheumatoid factor presence: unspecified presence Qualified Code(s): M06.9 - Rheumatoid arthritis, unspecified Plan: 63-year-old female with seropositive RA presents for follow-up. on methotrexate 25 mg weekly and Kevzara 200 mg every other week. She is complaining of diffuse pain. The majority of her pains are related to degenerative arthritis as well as fibromyalgia. However she does have couple of swollen and the few tender joints increase methotrexate to 25 mg weekly Continue Kevzara 200 mg every other week High-resolution CT chest was ordered to evaluate for RA-ILD which was negative. 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 Will check bilateral upper extremity EMG/NCV to rule out CTS (4) Back pain with history of spinal surgery: Code(s): M54.9 - Dorsalgia, unspecified; Z98.890 - Other specified postprocedural states Category: Medical Plan: Advised patient to return to her pain medicine physician (5) Fibromyalgia, primary: Code(s): M79.7 - Fibromyalgia Category: Medical Plan: Advised patient to make an appointment with psychotherapist. Consider psychiatrist. He uses her CPAP regularly. Advised patient to do some light exercises She is on gabapentin (6) Immunization counseling: Code(s): Z71.85 - Encounter for immunization safety counseling Category: Medical Plan: Patient states that she will get the COVID vaccine and COVID booster soon when she sees her PCP . Advised patient to hold methotrexate for 2 doses after vaccination Plan I spent 45 minutes reviewing patient's chart, evaluating patient, ordering diagnostic workup, counseling patient, writing a letter to the district court excusing her from jury duty documenting in the chart Orders: Orders NE electromyogram (EMG) Today R20.0 - Anesthesia of skin Medications: Changed From methotrexate sodium 20 mg (8 x 2.5 mg) PO QWEEK 96 tabs 1RF To methotrexate sodium 25 mg (10 x 2.5 mg) PO QWEEK 120 tabs 1RF Coding Level of Care Code Est Pt Level 5 (79353) Complex EM visit Add On G2211 Diagnoses Rheumatoid arthritis involving multiple sites, unspecified whether rheumatoid factor present M06.9 Rheumatoid arthritis location: multiple sites Rheumatoid factor presence: unspecified presence 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
[2024-06-16 14:48] VITALS: BP 140/80; PULSE 80; O2SAT 96; BMI 28.4
== END 2024-06-16 15:30 | disposition home or self-care (01) ==
PROVIDERS: PCP Physician Assistant; Visit Provider Student in an Organized Health Care Education/Training Program
DX: M06.9 Rheumatoid arthritis, unspecified (principal); Z79.631 Long term (current) use of antimetabolite agent; R20.0 Anesthesia of skin; M54.9 Dorsalgia, unspecified; Z98.890 Other specified postprocedural states; M79.7 Fibromyalgia; Z71.85 Encounter for immunization safety counseling
CPT/HCPCS: 99215; G2211

== ENCOUNTER → 2024-06-16 14:39 | Outpatient (BNVA) | payer MEDICARE, OTHER, SELFPAY | PROVIDERS: PCP Physician Assistant; Visit Provider Student in an Organized Health Care Education/Training Program | DX: M06.9 Rheumatoid arthritis, unspecified (principal); E78.5 Hyperlipidemia, unspecified; R20.0 Anesthesia of skin; M54.9 Dorsalgia, unspecified; M79.7 Fibromyalgia; Z79.631 Long term (current) use of antimetabolite agent; Z71.85 Encounter for immunization safety counseling; Z98.890 Other specified postprocedural states | CPT/HCPCS: 99212 ==

== ENCOUNTER 2024-08-07 13:46 | Outpatient (REF) | payer MEDICARE, OTHER, SELFPAY ==
--- OUTSIDE RECORDS SUMMARY | 2024-08-07 13:48 | XMS_ITS | Continuity of Care Document ---
Author Organization [facility] Address [address] [place] [id number] Care Team Providers Care Windows Systems Architect Name Role Phone Jackie URRUTIA, Kesha Car Primary Care Physician [id number] Date(s): 06/24/24 - 07/24/24 [facility] [address] [place] [id number] Encounter Type: Triage Allergies, Adverse Reactions, Alerts No Known Allergies Immunizations Given and Recorded Vaccine Date Status Refusal Reason influenza virus vaccine, inactivated 06/16/11 Give n Tet/Diphth/Acel, Pertussis (oldterm) 1 02/13/08 Gi mohit Tet/Diphth/Acel, Pertussis (oldterm) 2 01/27/07 Gi mohit 1Admin Note: INFO GIVEN TO PT 2Admin Note: SANOFI PASTUER HANDOUT 03/06/06 GIVEN Medications amLODIPine 5 mg oral tablet 5 mg, 1, tablet, By Mouth, Daily, # 30 tablet, Refills 0, Maintenance, 05/29/24 10:05:00 AM EDT, Partial fill upon patient request if the prescription is for a schedule II opioid drug. Start Date: 05/29/24 Status: Ordered Quantity: 30.0 Unit: tablet Repeat number: 1 aspirin 81 mg oral delayed release tablet 81 mg, 1, tablet, By Mouth, Daily, # 30 tablet, Refills 0, Maintenance, 10/26/20 11:13:00 AM EST, Partial fill upon patient request if the prescription is for a schedule II opioid drug. Start Date: 10/26/20 Status: Ordered Quantity: 30.0 Unit: tablet Repeat number: 1 BuPROPion (Eqv-Wellbutrin SR) 150 mg/12 hours oral tablet, extended release 1 tablet, By Mouth, 2 times a day, TO HELP STAY QUIT SMOKING., # 180 tablet, 3 Refills, Maintenance, 01/04/23 10:52:00 AM EDT, [facility], 163, cm, 11/10/21 10:33:00 EDT, Height, 78, kg, 03/03/21 12:22:00 EDT, Dry Weight Start Date: 01/04/23 Status: Ordered Quantity: 180.0 Unit: tablet Repeat number: 1 cetirizine 10 mg oral capsule 1 capsule = 10 mg, By Mouth, Daily, PRN for allergy symptoms, # 40 capsule, 0 Refills, Maintenance,05/29/24 10:05:00 AM EDT, Capsule, Partial fill upon patient request if the prescription is for a schedule II opioid drug. Start Date: 05/29/24 Status: Ordered Quantity: 40.0 Unit: capsule Repeat number: 1 Folic Acid = 800 mcg, By Mouth, Daily, 0 Refills, Maintenance, 10/21/07 11:00:17 AM EST Start Date: 10/21/07 Status: Ordered Repeat number: 1 Gabapentin = 600 mg, By Mouth, 4 times a day, 0 Refills, Maintenance, 10/02/19 10:15:00 AM EST Start Date: 10/02/19 Status: Ordered Repeat number: 1 gabapentin 300 mg oral capsule 300 mg, 1, capsule, By Mouth, Daily at bedtime, Refills 0, Maintenance, 05/29/24 10:07:00 AM EDT, Partial fill upon patient request if the prescription is for a schedule II opioid drug. Start Date: 05/29/24 Status: Ordered Repeat number: 1 gabapentin 600 mg oral tablet 1.5 tablet = 900 mg, By Mouth, 4 times a day, # 180 tablet, 3 Refills, Maintenance, 07/31/18 4:15:18PM EST, Tablet, [facility] Start Date: 07/31/18 Stop Date: 11/28/18 Status: Ordered Quantity: 180.0 Unit: tablet Repeat number: 4 Kevzara Pre-filled Pen 200 mg/1.14 mL subcutaneous solution 0 Refills, Maintenance, 04/13/21 10:58:00 AM EDT, Partial fill upon patient request if the prescription is for a schedule II opioid drug. Start Date: 04/13/21 Status: Ordered Repeat number: 1 Lipitor 40 mg oral tablet 1 tablet = 40 mg, By Mouth, Daily, # 30 tablet, 0 Refills, Maintenance, 05/07/19 10:45:15 AM EDT, Tablet, [facility] Start Date: 05/07/19 Status: Ordered Quantity: 30.0 Unit: tablet Repeat number: 1 lisinopril 10 mg oral tablet 10 mg, 1, tablet, By Mouth, Daily, # 30 tablet, Refills 0, Maintenance, 05/29/24 10:08:00 AM EDT, Partial fill upon patient request if the prescription is for a schedule II opioid drug. Start Date: 05/29/24 Status: Ordered Quantity: 30.0 Unit: tablet Repeat number: 1 Metformin = 500 mg, By Mouth, 2 times a day, 0 Refills, Maintenance, 09/14/16 10:17:10 AM EST Start Date: 09/14/16 Status: Ordered Repeat number: 1 Methotrexate = 2.5 mg, By Mouth, Every Saturday, takes 8 tabs, 0 Refills, Maintenance, 09/14/16 10:17:37 AM EST Start Date: 09/14/16 Status: Ordered Repeat number: 1 metoprolol 25 mg oral tablet, extended release 25 mg, 1, tablet, By Mouth, Daily, # 30 tablet, Refills 0, Maintenance, 12/15/20 2:26:00 PM EDT, Partial fill upon patient request if the prescription is for a schedule II opioid drug. Start Date: 12/15/20 Status: Ordered Quantity: 30.0 Unit: tablet Repeat number: 1 Pantoprazole = 20 mg, By Mouth, Daily, 0 Refills, Maintenance, 01/13/15 9:44:55 AM EDT Start Date: 01/13/15 Status: Ordered Repeat number: 1 ProAir HFA 90 mcg/inh inhalation aerosol with adapter 2, puffs, Inhalation, Every 4 hours, PRN, # 8.5 Gm, Refills 0, Maintenance, 03/29/17 9:42:43 AM EDT, Aerosol Start Date: 03/29/17 Status: Ordered Quantity: 8.5 Unit: g Repeat number: 1 sertraline 50 mg oral tablet 1 tablet = 50 mg, By Mouth, Daily, # 30 tablet, 0 Refills, Maintenance, 05/29/24 10:08:00 AM EDT, Tablet, Partial fill upon patient request if the prescription is for a schedule II opioid drug. Start Date: 05/29/24 Status: Ordered Quantity: 30.0 Unit: tablet Repeat number: 1 Problem List Condition Confirmation Course Effective Dates Status H ealth Status Informant Back pain Confirmed Active Bursitis, trochanteric Confirmed Active CVA (cerebrovascular accident) Confirmed Active Depression Confirmed Active Fibroadenoma of breast Confirmed Active GERD (gastroesophageal reflux disease) Confirmed Active Hyperlipidemia Confirmed Active Hypertension Confirmed Active Cervical myofascial pain syndrome Confirmed Active Obese class I Confirmed Active Osteoporosis Confirmed Active Rheumatoid arthritis Confirmed Active Tobacco dependence syndrome Confirmed Active Social History Social History Type Response Smoking Status 5-9 cigarettes (betw een 1/4 to 1/2 pack)/day in last 30 days entered on: 06/29/19 Sex Sex Representation Female (finding) Patient Care team information Care Team Personnel Name: rBad SPRINGER, Norris Siegel Position: [facility] Physician (General Medicine) Member Role: Lifetime Consulting Physician Address: [address] [place] [address] Telecom: Name: Kesha Cho Position: [facility] PCO Associate Professional Member Role: PCP Address: [address] [place] [address] Telecom: Name: Pat Alfonso DO Position: [facility] HAT RENOVATOR Member Role: Lifetime HAT RENOVATOR Physician Address: [address] [place] [address] Telecom: Care Team Related Persons Name: JESSICA HASSAN Name: RACHAEL HASSAN Insurance Providers Guarantor name: [place] Health Plan Information #: 1 Payer: MEDICARE PART B OUTPT Member Number: NA Policy Number: NA Group Number: NA
--- NOTE | 2024-08-07 13:50 | EMG_ITS ---
Chief complaint: Bilateral hand pain. History of RA and diabetes. History of cervical spine surgery. History of right de Quervain surgery. Reason for referral: Evaluate for Carpal Tunnel Syndrome Referred by: Dr. Pope Procedure done: Bilateral upper extremities NCS/EMG Precautions and/or limitations: None The limb temperature was monitored continuously and remained between 32-36 degrees C during the performance of the NCS. Nerve Conduction Studies Anti Sensory Summary Table ?Stim Site NR Onset (ms) Norm Onset (ms) Peak (ms) Norm Peak (ms) O-P Amp (?V) Norm O-P Amp Site1 Site2 Delta-0 (ms) Dist (cm) Zac (m/s) Norm Zac (m/s) Left Median Anti Sensory (2nd Digit) Wrist ? 2.7 3.6 <3.6 69.6 >10 Wrist 2nd Digit 2.7 14.0 52 Right Median Anti Sensory (2nd Digit) Wrist ? 2.6 3.3 <3.6 55.4 >10 Wrist 2nd Digit 2.6 14.0 54 Right Radial Anti Sensory (Thumb) Forearm ? 2.3 2.8 <3.1 21.4 Forearm Thumb 2.3 0.0 Left Ulnar Anti Sensory (5th Digit) Wrist ? 2.2 3.3 <3.7 48.8 >15.0 Wrist 5th Digit 2.2 14.0 64 Right Ulnar Anti Sensory (5th Digit) Wrist ? 2.6 3.4 <3.7 19.1 >15.0 Wrist 5th Digit 2.6 14.0 54 Motor Summary Table ?Stim Site NR Onset (ms) Norm Onset (ms) O-P Amp (mV) Norm O-P Amp iAmp (mV) Amp (1st) (%) Site1 Site2 Delta-0 (ms) Dist (cm) Zac (m/s) Norm Zac (m/s) Left Median Motor (Abd Poll Brev) Wrist ? 3.4 <3.9 11.0 >4.5 13.5 100.0 Elbow Wrist 3.3 17.0 52 >45 Elbow ? 6.7 10.5 12.6 95.5 Right Median Motor (Abd Poll Brev) Wrist ? 3.5 <3.9 4.4 >4.5 5.3 100.0 Elbow Wrist 3.2 18.0 56 >45 Elbow ? 6.7 4.2 5.1 95.5 Left Ulnar Motor (Abd Dig Minimi) Wrist ? 2.9 <3.0 10.3 >5 11.8 100.0 B Elbow Wrist 3.0 15.0 50 >45 B Elbow ? 5.9 9.6 11.1 93.2 A Elbow B Elbow 1.5 10.0 67 >45 A Elbow ? 7.4 9.0 10.5 87.4 Right Ulnar Motor (Abd Dig Minimi) Wrist ? 2.9 <3.0 8.7 >5 9.9 100.0 B Elbow Wrist 2.8 17.5 62 >45 B Elbow ? 5.7 8.1 9.3 93.1 A Elbow B Elbow 1.6 10.0 63 >45 A Elbow ? 7.3 7.5 8.7 86.2 EMG ?Side Muscle Nerve Root Ins Act Fibs Psw Amp Dur Poly Recrt Int Pat Comment Right 1stDorInt Ulnar C8-T1 Nml Nml Nml Nml Nml 0 Nml Complete Right FlexCarRad Median C6-7 Nml Nml Nml Nml Nml 0 Nml Complete Right Biceps Musculocut C5-6 Nml Nml Nml Nml Nml 0 Nml Complete Right Triceps Radial C6-7-8 Nml Nml Nml Nml Nml 0 Nml Complete Right Deltoid Axillary C5-6 Nml Nml Nml Nml Nml 0 Nml Complete Left 1stDorInt Ulnar C8-T1 Nml Nml Nml Nml Nml 0 Nml Complete Left FlexCarRad Median C6-7 Nml Nml Nml Nml Nml 0 Nml Complete Left Biceps Musculocut C5-6 Nml Nml Nml Nml Nml 0 Nml Complete Left Triceps Radial C6-7-8 Nml Nml Nml Nml Nml 0 Nml Complete Left Deltoid Axillary C5-6 Nml Nml Nml Nml Nml 0 Nml Complete FINDINGS: All motor and sensory nerves tested showed normal latencies, amplitudes and conduction velocities. Concentric needle EMG was performed in selected muscles of the bilateral upper extremities. Study did not reveal signs of electric abnormalities as shown in the table above. IMPRESSION: 1. This is a normal study. 2. There is no electrodiagnostic evidence for median neuropathy, ulnar neuropathy, brachial plexopathy, or cervical radiculopathy. Thank you for your kind referral. Liliana Restrepo MD, LEONEL Board Certified, [place] Board [employer] and Rehabilitation (ABPMR) Board Certified, [place] Board of Electrodiagnostic Medicine (ABEM) CODIN [phone] x 2 MTDD
== END 2024-08-07 13:47 | disposition home or self-care (01) ==
LOC: HO.NEURO 13:46
PROVIDERS: PCP Physician Assistant; Visit Provider Student in an Organized Health Care Education/Training Program
DX: R20.0 Anesthesia of skin (principal)
CPT/HCPCS: 95886; 95911

== ENCOUNTER → 2024-08-07 13:50 | Outpatient (BNV) | payer MEDICARE, OTHER, SELFPAY | PROVIDERS: PCP Physician Assistant; Visit Provider Physical Medicine & Rehabilitation | DX: R20.0 Anesthesia of skin (principal); M79.641 Pain in right hand; M79.642 Pain in left hand | CPT/HCPCS: 95886; 95911 ==

== ENCOUNTER 2025-02-16 14:02 | Outpatient (AMB) | payer MEDICARE, OTHER, SELFPAY ==
--- NOTE | 2025-02-16 14:05 | A.OFFVIS_ITS ---
Vital Signs 02/16/25 14:14 Height 5 ft 4 in Weight 158 lb 8.198 oz BMI 27.2 BP 150/90 H Blood Pressure Location Lt brachial Position Sitting Pulse 97 Pulse Source Pulse Oximeter Pulse Oximetry (%) 98 Oxygen Delivery Method Room Air Intake Visit Reasons: RA Intake Note: Patient presents for RA follow up. Allergies Seasonal Allergies Allergy (Unknown, Verified 02/16/25 14:11) Unknown Medication List - Last Reconciled 02/16/25 by Mary Anne Summers MD albuterol sulfate 90 mcg/actuation (ProAir HFA) 2 puffs inhalation Q6H PRN amlodipine 5 mg PO DAILY aspirin (Adult Low Dose Aspirin) 81 mg PO DAILY atorvastatin 40 mg PO BEDTIME bupropion HCl SR 150 mg PO BID famciclovir 1,500 mg PO BID fluticasone propionate 50 mcg/actuation (Allergy Relief (fluticasone)) 2 sprays intranasal DAILY folic acid 1 mg PO DAILY gabapentin 600 mg PO TID gabapentin 300 mg PO BEDTIME lisinopril 10 mg PO DAILY metformin ER 500 mg PO BID methotrexate sodium 25 mg (10 x 2.5 mg) PO QWEEK pantoprazole 20 mg PO DAILY sarilumab (Kevzara) 200 mg (1.14 mL) subcut Q2W sertraline 50 mg PO DAILY HPI Comments Details: Patient is a 64-year-old female with asthma, hypertension, hyperlipidemia, depression, diabetes, GERD, polyarticular osteoarthritis and rheumatoid arthritis here today for follow up Interval History: Patient last seen 06/16/[address] Pope. At that time she was following up for her seropositive rheumatoid arthritis on methotrexate 20 mg weekly, Kevzara every other week and folic acid. She was complaining of diffuse pains especially affecting her left lower back which radiates to her left lower extremity. Also complaining of difficulty making a fist and that things follow up of her hands sometimes. At that time she did have a few swollen and tender joints and so her methotrexate was increased to 25 mg weekly. Today, Patient reports improved symptoms Rheumatologic History: ++RF+++CCP Diagnosed [address] Salinas. Hydroxychloroquine, leflunomide ineffective Methotrexate all through Enbrel for 7-8 years working well then lost efficacy, Humira ineffective Xeljanz effective for 2-3 years then switched to Kevzara 2020 (due to risk of CV events) Kevzara 2020 effective Initial history: This is a 62-year-old female with a past medical history of hypertension, diabetes mellitus, dyslipidemia, CVA, carotid artery stenosis, obstructive sleep apnea presents for RA management. Patient's previous associate doctor left the practice. Patient was initially diagnosed by Dr. Salinas in 2006. She was on meloxicam, initially, Plaquenil was not very effective. She had been on methotrexate almost all through. Was on leflunomide but it was rapidly discontinued per patient, likely due to lack of efficacy, She was on Enbrel for 7-8 years and it stopped its efficacy. Humira was not effective. She was doing well on Xeljanz for 2-3 years then it it was switched to Kevzara in 2020 by . She remains on Kevzara every 2 weeks, methotrexate 8 tabs once weekly and folic acid, she is also on prednisone but she is not sure how much she is taking. For more than 1 month patient has been sick with a cold she has been having runny nose followed by chest congestion and cough. Her cough is now productive of greenish sputum. She denies any fevers. She denies worsening shortness of breath She self tested herself for COVID at home multiple times and it was negative. She received the flu vaccine this season. Patient continues to have diffuse joint pain she has difficulty flexing her right middle finger PIP. She has morning stiffness especially affecting her hips bilaterally. She takes ibuprofen 3-4 tablets 3 to 4 times a month for joint pain. Current Rheumatology Medication(s): Methotrexate 25 mg weekly Kevzara 200 mg weekly Folic acid 1 mg daily [facility] Medical History Back pain with history of spinal surgery Tobacco abuse KAROLINA (obstructive sleep apnea) Rheumatoid arthritis Essential (primary) hypertension Anxiety CVA (cerebral vascular accident) Hyperlipidemia Insomnia Impaired cognition Diabetes Biceps tendinitis Carotid artery stenosis GERD (gastroesophageal reflux disease) Surgical History H/O neck surgery H/O thumb surgery H/O heart artery stent H/O cervical discectomy Hx of colonoscopy Hx of knee surgery Hx of section History of bladder surgery Family History Mother Thyroid disease Heart disease Arthritis Maternal Grandfather Stomach cancer Social History Household Members: Spouse and Children Alcohol intake: current Patient Tobacco Use Status: Current everyday Tobacco user Cigarettes Per Day: 4 Substance Use Type: Marijuana Current occupational status: previously employed and retired 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 Review of Systems Const Details: Review of Systems Constitutional: Denies fever, chills, weight loss ENT: Denies vision changes, eye pain or eye redness, dental caries, dry mouth GI: Denies nausea, vomiting, diarrhea, abdominal pain, change in BM Pulm: Denies SOB, PARKER, hemoptysis, wheezing Cards: Denies chest pain, palpitations Skin: Denies Raynaud's, rash, nail changes, photosensitivity, DRUM DRIER: Denies headaches, weakness, paresthesias, recurrent falls MSK: as per HPI All other systems reviewed and are unremarkable except noted above Physical Exam Vital Signs: Last Vital Signs Pulse 97 02/16/25 14:14 BP 150/90 H 02/16/25 14:14 Pulse Ox 98 02/16/25 14:14 Oxygen Delivery Method Room Air 02/16/25 14:14 BMI result Body Mass Index 27.2 Vital signs reviewed Physical Examination CONSTITUITIONAL Patient alert and cooperative. Well appearing and in no apparent painful distress HEENT Conjunctiva and sclera clear. No lymphadenopathy. CHEST/RESPIRATORY SYSTEM Normal respiratory effort and able to speak in complete sentences. Clear to auscultation bilaterally. No crackles, rales, rhonchi, wheezes heard. CARDIAC SYSTEM Regular rate and rhythm. S1 and S2 heard no murmurs. Radial pulses intact bilaterally MSK Hands * Right Hand: Able to make a fist. No swelling or tenderness to palpation of these joints. No deformities noted. * Left Hand: Able to make a fist. No swelling or tenderness to palpation of these joints. No deformities noted. * Herbeden's nodes noted Wrists * Right Wrist: Full ROM. 70 degrees of wrist flexion, 80 degrees of wrist extension. No swelling or TTP * Left Wrist: Full ROM. 70 degrees of wrist flexion, 80 degrees of wrist extension. No swelling or TTP Elbows * Right Elbow: Full ROM. No swelling or TTP. No TTP of the medial and lateral epicondyles * Left Elbow: Full ROM. No swelling or TTP. No TTP of the medial and lateral epicondyles Shoulders * Right shoulder: Full ROM. No swelling noted. No TTP of the AC joint, subacromial bursa or posterior shoulder * Left shoulder: Full ROM. No swelling noted. No TTP of the AC joint, subacromial bursa or posterior shoulder Hips * Right hip: Good ROM. No pain elicited with hip flexion/internal rotation/external rotation * Left hip: Good ROM. No pain elicited with hip flexion/internal rotation/external rotation Hip bursa: No tenderness to palpation bilaterally Knees * Right knee: Full ROM. No swelling noted. No TTP of the knee joint lie or pes anserine bursa. Lateral knee scar * Left knee: Decreased ROM. No swelling noted. No TTP of the knee joint lie or pes anserine bursa. Lateral and anterior knee scar Ankles * Right ankle: Good ankle dorsiflexion and plantar flexion. No swelling. No TTP of the ankle joint * Left ankle: Good ankle dorsiflexion and plantar flexion. No swelling. No TTP of the ankle joint Feet * Right foot: Negative squeeze test * Left foot: Negative squeeze test Tender points? * No tenderness to palpation of the bilateral trapezius, supraspinatus, anterior costochondral junctions, bilateral suboccipital muscle insertions SKIN No rashes Results Reviewed Results Reviewed: [facility] lab report reviewed 01/13/2025 Creatinine 0.6 GFR >60 Cholesterol 146 Triglycerides 63 LDL 54 HDL 79 EMG 07/2024 FINDINGS: All motor and sensory nerves tested showed normal latencies, amplitudes and conduction velocities. Concentric needle EMG was performed in selected muscles of the bilateral upper extremities. Study did not reveal signs of electric abnormalities as shown in the table above. IMPRESSION: 1. This is a normal study. 2. There is no electrodiagnostic evidence for median neuropathy, ulnar neuropathy, brachial plexopathy, or cervical radiculopathy. Assessment & Plan Assessment & Plan (1) Rheumatoid arthritis: Comment: ++RF+++CCP Diagnosed [address] Salinas. Hydroxychloroquine, leflunomide ineffective Methotrexate all through Enbrel for 7-8 years working well then lost efficacy, Humira ineffective Xeljanz effective for 2-3 years then switched to Kevzara 2020 (due to risk of CV events) Kevzara 2020 effective Code(s): M06.9 - Rheumatoid arthritis, unspecified Category: Medical Qualifiers: Rheumatoid arthritis location: multiple sites Rheumatoid factor presence: unspecified presence Qualified Code(s): M06.9 - Rheumatoid arthritis, unspecified Plan: #Seropositive RA Patient is a 64 y.o. female with seropositive RA here today for follow up. Currently in remission after increasing Mtx to 10 pills weekly. Recommending split dosing of the methotrexate Plan - Methotrexate 25mg PO weekly split dose - Folic acid 1mg daily - Kevzara 200mg SC every 2 weeks - RTC 4 months - Labs before visit: CBC, CMP, ESR, CRP, Hepatitis panel, lipid panel and T spot (2) Screening for osteoporosis: Code(s): Z13.820 - Encounter for screening for osteoporosis Plan: #Osteoporosis screening Gets screening done with PCP (3) residential methotrexate user: Code(s): Z79.631 - emt intermediate (current) use of antimetabolite agent Category: Medical Plan: #Long-term Current Use of Methotrexate Discussed with patient the benefits and risks of methotrexate for managing their rheumatic condition Benefits include reduced pain, reduced mortality, maintenance of remission and reduction of flares Risks include oral ulcers, photosensitivity, hepatotoxicity, hematologic toxicity, pneumonitis, flu-like symptoms (especially day after administration), nodulosis, lymphomas ? Limit alcohol and avoid Bactrim ? Monitoring: ?CBC, BMP, LFTs every 3-4 months and hepatitis serologies as needed (4) emt intermediate current use of sarilumab: Code(s): Z79.620 - residential (current) use of immunosuppressive biologic Plan: #Long-term Use of Sarilumab Discussed the risks and benefits of sarilumab with the management of this patient's rheumatic condition. ? Benefits include decreased pain, improved mortality, improved quality of life Risks include LFT abnormalities, elevated triglycerides, GI perforations Contraindicated in a patient with history of diverticulitis Monitoring: ?CBC, CMP, triglycerides Plan I spent 36 minutes reviewing the record and labs, taking a history, examining the patient, discussing the treatment plan, ordering diagnostic work up and documenting in the medical record Medications: Refilled folic acid 1 mg PO DAILY 90 tabs 1RF methotrexate sodium 25 mg (10 x 2.5 mg) PO QWEEK 130 tabs 1RF M06.9 - Rheumatoid arthritis, unspecified sarilumab (Kevzara) 200 mg (1.14 mL) subcut Q2W 2.28 mL 5RF M06.9 - Rheumatoid arthritis, unspecified Coding Level of Care Code Est Pt Level 4 (58302) Complex EM visit Add On G2211 Diagnoses Rheumatoid arthritis involving multiple sites, unspecified whether rheumatoid factor present M06.9 Rheumatoid arthritis location: multiple sites Rheumatoid factor presence: unspecified presence Screening for osteoporosis Z13.820 emt intermediate methotrexate user Z79.631 residential current use of sarilumab Z79.620
[2025-02-16 14:14] VITALS: BP 150/90; PULSE 97; O2SAT 98; BMI 27.2
== END 2025-02-16 14:40 | disposition home or self-care (01) ==
LOC: HO.RHE 14:03
PROVIDERS: PCP Physician Assistant; Visit Provider Student in an Organized Health Care Education/Training Program
DX: M06.9 Rheumatoid arthritis, unspecified (principal); Z13.820 Encounter for screening for osteoporosis; Z79.631 Long term (current) use of antimetabolite agent; Z79.620 Long term (current) use of immunosuppressive biologic
CPT/HCPCS: 99214; G2211

== ENCOUNTER → 2025-02-16 14:02 | Outpatient (BNVA) | payer MEDICARE, OTHER, SELFPAY | PROVIDERS: PCP Physician Assistant; Visit Provider Student in an Organized Health Care Education/Training Program | DX: M05.79 Rheumatoid arthritis with rheumatoid factor of multiple sites without organ or systems involvement (principal); M15.1 Heberden's nodes (with arthropathy); Z13.820 Encounter for screening for osteoporosis; Z79.631 Long term (current) use of antimetabolite agent; Z79.620 Long term (current) use of immunosuppressive biologic | CPT/HCPCS: 99212 ==

== ENCOUNTER 2025-07-20 14:15 | Outpatient (AMB) | payer MEDICARE, OTHER, SELFPAY ==
--- NOTE | 2025-07-20 15:16 | A.OFFVIS_ITS ---
Vital Signs 07/20/25 15:21 Height 5 ft 4 in Weight 156 lb 11.979 oz BMI 26.9 BP 132/70 Blood Pressure Location Lt brachial Position Sitting Pulse 77 Pulse Source Pulse Oximeter Pulse Oximetry (%) 97 Oxygen Delivery Method Room Air Intake Visit Reasons: f/u RA Intake Note: Patient presents for RA follow up. Allergies Seasonal Allergies Allergy (Unknown, Verified 07/20/25 15:21) Unknown Medication List - Last Reconciled 07/20/25 by Mary Anne Summers MD albuterol sulfate 90 mcg/actuation (ProAir HFA) 2 puffs inhalation Q6H PRN amlodipine 5 mg PO DAILY aspirin (Adult Low Dose Aspirin) 81 mg PO DAILY atorvastatin 40 mg PO BEDTIME bupropion HCl SR 150 mg PO BID famciclovir 1,500 mg PO BID fluticasone propionate 50 mcg/actuation (Allergy Relief (fluticasone)) 2 sprays intranasal DAILY folic acid 1 mg PO DAILY gabapentin 600 mg PO TID gabapentin 300 mg PO BEDTIME lisinopril 10 mg PO DAILY metformin ER 500 mg PO BID methotrexate sodium 25 mg (10 x 2.5 mg) PO QWEEK pantoprazole 20 mg PO DAILY sarilumab (Kevzara) 200 mg (1.14 mL) subcut Q2W sertraline 50 mg PO DAILY HPI Comments Details: Patient is a 65-year-old female with asthma, hypertension, hyperlipidemia, depression, diabetes, GERD, polyarticular osteoarthritis and rheumatoid arthritis here today for follow up Interval History: Patient last seen 02/16/25 with me - On Kevzara 200mg every 2 weeks, Methotrexate 25mg weekly, Folic acid 1mg daily - Patient reports improved symptoms on increased mtx Today - On Kevzara 200mg every 2 weeks, Methotrexate 25mg weekly, Folic acid 1mg daily - Patient follows a regimen of Kevzara and methotrexate with no negative effects and noted joint improvements. - Acute events of exacerbation reported twice since last consult, each resolving in approximately four days with conservative management. - Identified the need to manage activities to reduce risk of triggering flares. - Notes specific pain in the right shoulder while recounting past therapeutic injections for back pain and awaiting further treatment for nerve discomfort. Rheumatologic History: ++RF+++CCP Diagnosed [address] Salinas. Hydroxychloroquine, leflunomide ineffective Methotrexate all through Enbrel for 7-8 years working well then lost efficacy, Humira ineffective Xeljanz effective for 2-3 years then switched to Kevzara 2020 (due to risk of CV events) Kevzara 2020 effective Initial history: This is a 62-year-old female with a past medical history of hypertension, diabetes mellitus, dyslipidemia, CVA, carotid artery stenosis, obstructive sleep apnea presents for RA management. Patient's previous rn radiology left the practice. Patient was initially diagnosed by Dr. Salinas in 2006. She was on meloxicam, initially, Plaquenil was not very effective. She had been on methotrexate almost all through. Was on leflunomide but it was rapidly discontinued per patient, likely due to lack of efficacy, She was on Enbrel for 7-8 years and it stopped its efficacy. Humira was not effective. She was doing well on Xeljanz for 2-3 years then it it was switched to Kevzara in 2020 by . She remains on Kevzara every 2 weeks, methotrexate 8 tabs once weekly and folic acid, she is also on prednisone but she is not sure how much she is taking. For more than 1 month patient has been sick with a cold she has been having runny nose followed by chest congestion and cough. Her cough is now productive of greenish sputum. She denies any fevers. She denies worsening shortness of breath She self tested herself for COVID at home multiple times and it was negative. She received the flu vaccine this season. Patient continues to have diffuse joint pain she has difficulty flexing her right middle finger PIP. She has morning stiffness especially affecting her h ips bilaterally. She takes ibuprofen 3-4 tablets 3 to 4 times a month for joint pain. Current Rheumatology Medication(s): Methotrexate 25 mg weekly Kevzara 200 mg weekly Folic acid 1 mg daily [facility] Medical History Back pain with history of spinal surgery Tobacco abuse KAROLINA (obstructive sleep apnea) Rheumatoid arthritis Essential (primary) hypertension Anxiety CVA (cerebral vascular accident) Hyperlipidemia Insomnia Impaired cognition Diabetes Biceps tendinitis Carotid artery stenosis GERD (gastroesophageal reflux disease) Surgical History H/O neck surgery H/O thumb surgery H/O heart artery stent H/O cervical discectomy Hx of colonoscopy Hx of knee surgery Hx of section History of bladder surgery Family History Mother Thyroid disease Heart disease Arthritis Maternal Grandfather Stomach cancer Social History Household Members: Spouse and Children Alcohol intake: current Patient Tobacco Use Status: Current everyday Tobacco user Cigarettes Per Day: 4 Substance Use Type: Marijuana Current occupational status: previously employed and retired 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 Review of Systems Narrative Review of Systems Constitutional: Denies fever, chills, weight loss ENT: Denies vision changes, eye pain or eye redness, dental caries, dry mouth GI: Denies nausea, vomiting, diarrhea, abdominal pain, change in BM Pulm: Denies SOB, PARKER, hemoptysis, wheezing Cards: Denies chest pain, palpitations Skin: Denies Raynaud's, rash, nail changes, photosensitivity, COVERED BUCKLE ASSEMBLER: Denies headaches, weakness, paresthesias, recurrent falls MSK: as per HPI All other systems reviewed and are unremarkable except noted above Physical Exam Exam Exam: Vital signs reviewed Physical Examination CONSTITUITIONAL Patient alert and cooperative. Well appearing and in no apparent painful distress MSK Hands * Right Hand: Able to make a fist. No swelling or tenderness to palpation of the MCPs, PIPs or DIPs. * Left Hand: Able to make a fist. No swelling or tenderness to palpation of the MCPs, PIPs or DIPs. * Herbedens nodes noted bilaterally Wrists * Right Wrist: Full ROM to flexion and extension. No swelling or TTP * Left Wrist: Full ROM to flexion and extension. No swelling or TTP Elbows * Right Elbow: Full ROM. No swelling or TTP. No TTP of the medial epicondyle. No TTP of the lateral epicondyle * Left Elbow: Full ROM. No swelling or TTP. No TTP of the medial epicondyle. No TTP of the lateral epicondyle Shoulders * Right shoulder: Full ROM. No swelling noted. No TTP of the AC joint. No TTP of the subacromial bursa. No TTP of the posterior shoulder * Left shoulder: Decreased ROM. No swelling noted. No TTP of the AC joint. No TTP of the subacromial bursa. No TTP of the posterior shoulder Knees * Right knee: Full ROM. No swelling noted. No TTP of the knee joint line. No TTP of pes anserine bursa * Left knee: Full ROM. No swelling noted. No TTP of the knee joint line. No TTP of pes anserine bursa. * Crepitations felt bilaterally Ankles * Right ankle: Good ankle dorsiflexion and plantar flexion. No swelling. No TTP of the ankle joint * Left ankle: Good ankle dorsiflexion and plantar flexion. No swelling. No TTP of the ankle joint Feet * Right foot: Negative squeeze test * Left foot: Negative squeeze test Tender points? * No tenderness to palpation of the bilateral trapezius, supraspinatus, anterior costochondral junctions, bilateral suboccipital muscle insertions SKIN No rashes Vital Signs: Last Vital Signs Pulse 77 07/20/25 15:21 BP 132/70 07/20/25 15:21 Pulse Ox 97 07/20/25 15:21 Oxygen Delivery Method Room Air 07/20/25 15:21 BMI result Body Mass Index 26.9 Results Reviewed Results Reviewed: [facility] lab report reviewed 01/13/2025 Creatinine 0.6 GFR >60 Cholesterol 146 Triglycerides 63 LDL 54 HDL 79 EMG 07/2024 FINDINGS: All motor and sensory nerves tested showed normal latencies, amplitudes and conduction velocities. Concentric needle EMG was performed in selected muscles of the bilateral upper extremities. Study did not reveal signs of electric abnormalities as shown in the table above. IMPRESSION: 1. This is a normal study. 2. There is no electrodiagnostic evidence for median neuropathy, ulnar neuropathy, brachial plexopathy, or cervical radiculopathy. Assessment & Plan Assessment & Plan (1) Rheumatoid arthritis: Comment: ++RF+++CCP Diagnosed [address] Salinas. Hydroxychloroquine, leflunomide ineffective Methotrexate all through Enbrel for 7-8 years working well then lost efficacy, Humira ineffective Xeljanz effective for 2-3 years then switched to Kevzara 2020 (due to risk of CV events) Kevzara 2020 effective Code(s): M06.9 - Rheumatoid arthritis, unspecified Category: Medical Qualifiers: Rheumatoid arthritis location: multiple sites Rheumatoid factor presence: unspecified presence Qualified Code(s): M06.9 - Rheumatoid arthritis, unspecified Plan: #Seropositive RA Patient is a 65 y.o. female with seropositive RA here today for follow up. Currently in remission after increasing Mtx to 10 pills weekly. Recommending split dosing of the methotrexate Plan - Methotrexate 25mg PO weekly split dose - Folic acid 1mg daily - Kevzara 200mg SC every 2 weeks - Labs today: CBC, CMP, ESR, CRP, Hepatitis panel, lipid panel and T spot - RTC 4 months - Labs before visit: CBC, CMP, ESR, CRP (2) Screening for osteoporosis: Code(s): Z13.820 - Encounter for screening for osteoporosis Plan: #Osteoporosis screening Gets screening done with PCP (3) jail methotrexate user: Code(s): Z79.631 - jail (current) use of antimetabolite agent Category: Medical Plan: #Long-term Current Use of Methotrexate Discussed with patient the benefits and risks of methotrexate for managing their rheumatic condition Benefits include reduced pain, reduced mortality, maintenance of remission and reduction of flares Risks include oral ulcers, photosensitivity, hepatotoxicity, hematologic toxicity, pneumonitis, flu-like symptoms (especially day after administration), nodulosis, lymphomas ? Limit alcohol and avoid Bactrim ? 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 ? Benefits include decreased pain, improved mortality, improved quality of life Risks include LFT abnormalities, elevated triglycerides, GI perforations Contraindicated in a patient with history of diverticulitis Monitoring: ?CBC, CMP, triglycerides Plan I spent 25 minutes reviewing the record and labs, taking a history, examining the patient, discussing the treatment plan, ordering diagnostic work up and documenting in the medical record Coding Level of Care Code Est Pt Level 3 (01264) Complex visit Add On G2211 Diagnoses Rheumatoid arthritis involving multiple sites, unspecified whether rheumatoid factor present M06.9 Rheumatoid arthritis location: multiple sites Rheumatoid factor presence: unspecified presence Screening for osteoporosis Z13.820 terminal operations supervisor methotrexate user Z79.631 jail current use of sarilumab Z79.620
[2025-07-20 15:21] VITALS: BP 132/70; PULSE 77; O2SAT 97; BMI 26.9
--- OUTSIDE RECORDS SUMMARY | 2025-07-20 18:08 | XMS_ITS | Encounter Summary ---
Author Organization [facility] Address [address] [facility] [address] [place] [id number] Phone Care Team Providers Care Assembler Radio And Electrical Name Role Phone Connie Stringer MD Primary Care Provider Encounter Details Date Type Department Care Team (Late st Contact Info) Description 04/24/2019 Transcribe Orders Virtual Department [address] [place] [address] Ale Christie PA [address] [place] [address] Social History Tobacco Use Types Packs/Day Years Used Date Smoking Tobacco: Every Day Cigarettes 0.5 50 Smokeless Tobacco: Never Alcohol Use Standard Drinks/Week Comments Yes 1 (1 standard drink = 0.6 oz pur e alcohol) 1-2 per month Comments Unknown Sex and Gender Information Value Date Recorded Sex Assigned at Not on file Legal Sex Female 9:51 PM EDT Gender Identity Not on file Sexual Orientation Not on file documented as of this encounter Plan of Treatment Not on file documented as of this encounter Visit Diagnoses Not on filedocumented in this encounter Care Teams Assembler Radio And Electrical Relationship Specialty Start Date End Date Connie Stringer MD PCP - General Family Medicine 04/24/19 documented as of this encounter Additional Source Comments The information contained in this document represents components of the legal health record. It is not the complete legal health record.[facility]
--- OUTSIDE RECORDS SUMMARY | 2025-07-20 18:08 | XMS_ITS | Encounter Summary ---
Author Organization [facility] Address [address] [facility] [address] [place] [address] Phone Care Team Providers Care Business Database Analyst Name Role Phone Unknown, Unknown Primary Care Provider Connie Ybarra MD Primary Care Provider [phone] Encounter Details Date Type Department Care Team (Late st Contact Info) Description 01/01/2019 Procedure Pass [place] Admitting Dept - Virtual Department [address] [place] [address] Social History Tobacco Use Types Packs/Day Years [...] on filedocumented in this encounter Care Teams Business Database Analyst Relationship Specialty Start Date End Date Unknown, Unknown, PCP - General 12/22/18 04/23/19 Connie Stringer MD PCP - General Family Medicine 04/24/19 documented as of this encounter Additional Source Comments The information contained in this document represents components of the legal health record. It is not the complete legal health record.[facility]
--- OUTSIDE RECORDS SUMMARY | 2025-07-20 18:09 | XMS_ITS | Clinical Summary ---
Author Organization [facility] Address [address] [facility] [address] [place] [address] Phone Care Team Providers Care Postbed Stitcher Name Role Phone Connie Stringer MD Primary Care Provider Allergies No known active allergies Medications etanercept (ENBREL) 50 mg/mL (0.98 mL) PnIj 50 mg every 7 days. Active folic acid (FOLVITE) 1 MG tablet Take 1 mg by mouth daily. Active gabapentin (NEURONTIN) 600 MG tablet Take 600 mg by mouth 4 (four) times a day. Active hydroCHLOROthia zide (HYDRODIURIL) 25 MG tablet Take 25 mg by mouth daily. Active metFORMIN (GLUCOPHAGE) 500 MG tablet Take 500 mg by mouth daily. At lunch Active predniSONE (DELTASONE) 1 MG tablet Take 4 mg by mouth 4 (four) times a day. Active methotrexate 2.5 MG Oral tablet Take 20 mg by mouth every 7 days. Taken on Wednesdays Active metoprolol succinate (TOPROL-XL) 25 MG 24 hr tablet Take 12.5 mg by mouth 2 (two) times a day. Active pantoprazole (PROTONIX) 20 MG tablet Take 20 mg by mouth daily. Active PARoxetine (PAXIL) 20 MG tablet Take 20 mg by mouth 2 (two) times a day. Active simvastatin (ZOCOR) 40 MG tablet Take 40 mg by mouth nightly at bedtime. Active topiramate (TOPAMAX) 100 MG tablet Take 100 mg by mouth 2 (two) times a day. Active aspirin 81 MG EC tablet Take 81 mg by mouth daily. Active Social History Tobacco Use Types Packs/Day Years Used Date Smoking Tobacco: Every Day Cigarettes 0.5 50 Smokeless Tobacco: Never Alcohol Use Standard Drinks/Week Comments Yes 1 (1 standard drink = 0.6 oz pur e alcohol) 1-2 per month Education Answer Date Recorded Are you interested in more education? Not on consuelo e 12/21/2022 Are you concerned about learning? Not on file 12/21/2022 No 12/21/2022 No 12/21/2022 Digital Access Answer Date Recorded No 01/19/2023 No 01/19/2023 No 01/19/2023 Reliable internet access at home? Not on file 01/19/2023 Device with a working camera? Not on file Comments Unknown Sex and Gender Information Value Date Recorded Sex Assigned at Not on file Legal Sex Female 9:51 PM EDT Gender Identity Not on file Sexual Orientation Not on file Last Filed Vital Signs Vital Sign Reading Time Taken Comments Blood Pressure 148/72 07/17/2024 11:30 AM EST Pulse 80 01/01/2019 9:15 AM EDT Temperature 36.5 C (97.7 F) 01/01/2019 9:46 AM EDT Respiratory Rate 18 01/01/2019 9:15 AM EDT Oxygen Saturation 100% 07/17/2024 10:00 AM EST Inhaled Oxygen Concentration - - Weight 86.6 kg (191 lb) 12/31/2018 9:04 AM EDT Height 165.1 cm (5' 5 ) 12/31/2018 9:04 AM EDT Body Mass Index 31.78 12/31/2018 9:04 AM EDT Plan of Treatment Health Maintenance Due Date Last Done Comments CREATININE LEVEL 1958 LIPID PANEL 1958 POTASSIUM LEVEL 1958 DEPRESSION SCREENING 1970 SMOKING Hx and SMOKELESS TOBACCO SCREENING 1971 HEPATITIS C SCREENING 02/27/1976 MAMMOGRAM 1998 COLOGUARD 2003 COLONOSCOPY 2003 COLORECTAL CANCER SCREENING 2003 FIT TEST 2003 FOBT 2003 SIGMOIDOSCOPY 2003 VIRTUAL COLONOSCOPY 2003 RSV VACCINE (1 - Risk 50-74 years 1-dose series) 02/27/2008 PNEUMOCOCCAL VACCINES (50+ years) (2 of 2 - PCV) 06/16/2012 06/16/2011 Adult Td,Tdap Booster 09/21/2020 09/21/2010 COVID-19 VACCINE (2 - Pfizer risk series) 12/10/2020 11/19/2020 OSTEOPOROSIS SCREENING INITIAL (ONE-TIME) 2023 INFLUENZA VACCINE (#1) 2025 , 06/11/2019, 07/04/2012, Additional history exists ZOSTER VACCINES Completed 06/23/2019, 01/12/2019 HEPATITIS A VACCINES Aged Out No long er eligible based on patient's age to complete this topic HIB VACCINES Aged Out No longer eligi ble based on patient's age to complete this topic MENINGOCOCCAL VACCINES (ACWY) Aged Out No longer eligible based on patient's age to complete this topic MENINGOCOCCAL VACCINES (B) Aged Out N o longer eligible based on patient's age to complete this topic Medical Devices Not on file Insurance [facility] MEDICARE SUPPLEMENT [facility] Address: [address] [address] MEDICARE PART A & B [facility] MEDICARE SUPPLEMENT MEDICARE PART A & B [facility] MEDICARE SUPPLEMENT [facility] MEDICARE SUPPLEMENT [facility] MEDICARE SUPPLEMENT MEDICARE PART A & B [facility] MEDICARE SUPPLEMENT [facility] MEDICARE SUPPLEMENT Member Subscriber Plan / Payer (Ef fective 2023-) Name:Rosa Maria Partida Relation to Subscriber:Self Name:Rosa Maria Partida Payer ID:Not on file Type:Indemnity Address: [place] [id number] MEDICARE PART A & B [facility] MEDICARE SUPPLEMENT MEDICARE PART A & B [facility] MEDICARE SUPPLEMENT [facility] Address: [place] [address] MEDICARE PART A & B Member Subscriber Plan / Payer (Ef fective 2023-Present) Name:Rosa Maria Partida Member ID:[id number] Relation to Subscriber:Self Name:Rosa Maria Partida Subscriber ID:[id number] Payer ID:[id number] Group ID:Not on file Type:Medicare Address: [employer] [address] Care Teams Postbed Stitcher Relationship Specialty Start Date End Date Connie Stringer MD PCP - General Family Medicine 04/24/19 Additional Source Comments The information contained in this document represents components of the legal health record. It is not the complete legal health record.[facility]
--- OUTSIDE RECORDS SUMMARY | 2025-07-20 18:09 | XMS_ITS | Encounter Summary ---
Author Organization [facility] Address [address] [address] Phone Care Team Providers Care Payroll Professional Name Role Phone Connie Stringer MD Primary Care Provider [phone]- [phone] Reason for Referral * Outpatient Procedure - Closed Specialty Diagnoses / Procedures Referred By Mellissa campo Referred To Contact Diagnoses Other specified pre-operative examination Procedures Adult Echo TTE Ale Christie PA Phone: tel: fax: Referral ID Status Reason Start Date Expiration Date Visits Re quested Visits Authorized [id number] Closed 04/24/2019 04/23/2020 1 1 Encounter Details Date Type Department Care Team (Late st Contact Info) Description 04/24/2019 Ancillary Orders Virtual Department [address] [place] [address] Ale Christie PA [address] [place] [address] Other specified pre-operative examination Social History Tobacco Use Types Packs/Day Years [...] on file documented as of this encounter Results * TTE COMPREHENSIVE (04/24/2019 2:55 PM EDT) Body Surface Area 1.9 m2 Weight 87 kg Systolic BP 112 mmHg Diastolic BP 51 mmHg Left Atrium Dimension Anterior-Posterior 26 15 - 40 mm Aortic Valve Mean Gradient 3.00 mmHg Aortic Valve Time Velocity Integral 221.00 mm Aortic Valve Peak Velocity 129.0 cm/s Aortic Valve Peak Gradient 7.00 mmHg Aortic Sinus Diameter 28 mm Ascending Aorta Diameter 24 mm Inferior Vena Cava Diameter 14 0.0 - 21 mm Interventricular Septum Thickness 12 mm Left Ventricle Internal Diameter End Diastole 44 37 - 52 mm Left Ventricle Internal Diameter End Systole 35 22 - 35 mm Left Ventricular Outflow Tract Diameter 20.0 mm LVOT VTI REST 150.00 mm Left Ventricular Outflow Tract Velocity 0.9 m/s Left Ventricular Outflow Tract Gradient at Rest 3.00 mmHg Left Ventricular Posterior Wall Thickness 10 mm Ejection Fraction 60 50 - 75 Percent Mitral Valve Deceleration Time 201.00 ms Mitral Valve A Wave Speed 70.3 cm/s Mitral Valve E Wave Speed 73.0 cm/s Right Ventricle Basal Diameter 30.80 25 - 41 mm Raw LV EF% 37 % Left Atrial Volume 35 mL Left Atrial Volume Index 18.42 mL/m2 Right Ventricle TAPSE 2 mm Aortic Valve Sinus Index 1 15 19 - 27 mm Ascending Aorta Diameter 13 mm Aortic Sinus Index 15 mm Ascending Aorta Index 13 mm Anatomical Region Laterality Modality Heart Ultrasound Narrative 04/24/2019 3:11 PM EDT The left ventricular cavity size and wall thickness are normal. Left ventricular systolic function is normal The estimated ejection fraction is 60% Left ventricular diastolic function appears within normal limits for age No significant valvular heart disease There is an insufficient tricuspid regurgitation Doppler profile to calculate a right ventricular systolic pressure. No prior studies for comparison Left Ventricle The left ventricular cavity size and wall thickness are normal. Left ventricular systolic function is normal. There are no segmental left ventricular wall motion abnormalities noted. The estimated ejection fraction is 60% (Normal 50-75%). The left ventricular ejection fraction was measured by visual estimate. Left ventricular diastolic function appears within normal limits for age. There is no evidence of left ventricular thrombus. Right Ventricle The right ventricular size is normal. The right ventricular systolic function is normal. Left Atrium The left atrium is normal in size. The LA volume index is 18.42 mL/m2 (normal indexed value is 16-34 mL/m2). The pulmonary venous flow profiles are normal. Right Atrium The right atrium is normal in size. The IVC measures 14 mm (normal <=21 mm). The IVC demonstrates normal collapse with inspiration which is consistent with normal RA pressure. Mitral Valve The mitral valve appears normal. E/A ratio is 1.0. E/E' avg is 9.2. Lat E' velocity is 8.49cm/s. Med E' velocity is 7.40cm/s. There is no evidence of mitral stenosis. There is trace mitral regurgitation detected by spectral and color Doppler. Tricuspid Valve The tricuspid valve appears normal. There is no evidence of tricuspid stenosis. There is evidence of tricuspid regurgitation by color and spectral Doppler. There is an insufficient tricuspid regurgitation Doppler profile to calculate a right ventricular systolic pressure. Aortic Valve The aortic valve appears normal. The aortic valve is tricuspid. There is mild thickening of multiple aortic leaflets. The peak aortic valve gradient is 7 mmHg. There is no evidence of aortic regurgitation by color and spectral Doppler. The visualized portions of the thoracic aorta appear normal. Pulmonic Valve The pulmonary valve appears normal. There is no evidence of pulmonic stenosis. There is no evidence of pulmonary regurgitation by color and spectral Doppler. Pericardium There is no evidence of pericardial effusion. Interatrial Septum The interatrial septum appears normal. There is no evidence of an atrial septal defect. Interventricular Septum Interventricular septal motion appears normal. There is no evidence of a ventricular septal defect. General Findings The image quality was fair (3). Technique(s) used in the evaluation: Color flow Doppler and Spectral Doppler. The predominant rhythm during the study was sinus. Comparison Findings No prior studies for comparison. us Ale URRUTIA CV ECHO ORDERABLES Final Resu lt documented in this encounter Visit Diagnoses Diagnosis Other specified pre-operative examination Other specified pre-operative examination documented in this encounter Care Teams Payroll Professional Relationship Specialty Start Date End Date Connie Stringer MD PCP - General Family Medicine 04/24/19 documented as of this encounter Additional Source Comments The information contained in this document represents components of the legal health record. It is not the complete legal health record.[facility]
== END 2025-07-20 15:44 | disposition home or self-care (01) ==
LOC: HO.RHES 14:15
PROVIDERS: PCP Physician Assistant; Visit Provider Student in an Organized Health Care Education/Training Program
DX: M06.9 Rheumatoid arthritis, unspecified (principal); Z13.820 Encounter for screening for osteoporosis; Z79.631 Long term (current) use of antimetabolite agent; Z79.620 Long term (current) use of immunosuppressive biologic
CPT/HCPCS: 99213; G2211

== ENCOUNTER → 2025-07-20 14:15 | Outpatient (BNVA) | payer MEDICARE, OTHER, SELFPAY | PROVIDERS: PCP Physician Assistant; Visit Provider Student in an Organized Health Care Education/Training Program | DX: M06.9 Rheumatoid arthritis, unspecified (principal); Z13.820 Encounter for screening for osteoporosis; Z79.631 Long term (current) use of antimetabolite agent; Z79.620 Long term (current) use of immunosuppressive biologic | CPT/HCPCS: 99212 ==